=== PATIENT | male | born 1970 | race Caucasian/White ===

== ENCOUNTER 2017-08-19 14:35 | Inpatient (IN) | payer OTHER ==
--- NOTE | 2017-08-19 15:32 | EKG ---
Test Date: 2017-08-19 Test Time: 15:15:04 Rotor Coil Taper: ROSIE MEASUREMENT RESULTS: Intervals: Rate: 118 MO: 140 QRSD: 80 QT: 328 QTc: 459 [place]: P: 34 MO: 140 QRS: -4 T: 26 INTERPRETIVE STATEMENTS: Sinus tachycardia Otherwise normal ECG Compared to ECG 06/26/2016 01:06:11 Sinus rhythm no longer present Myocardial infarct finding no longer present Electronically Signed On 08-19-17 15:31:08 CDT by Sagar Amador
[2017-08-19 15:56] LABS: Absolute Lymphocytes (CBC) 0.8 K/uL (0.7-4.9); Absolute Neutrophil 12.1 K/uL (1.8-8.0); Basophils % 1.1 % (0-1.3); Eosinophils % 1.5 % (0-4.4); Hematocrit 19.8 % (39.6-49.0); Lymphocytes % 5.7 % (15.3-44.8); MCH 25.5 pg (27.0-35.0); MCV 82.8 fL (80-100); MPV 7.7 fL (7.6-11.3); Monocytes % 6.9 % (3.3-12.3)
[2017-08-19 16:00] LABS: Protime INR 1.28
[2017-08-19 16:09] LABS: Albumin 2.8 g/dL (3.4-5.0); Bilirubin Direct 1.5 mg/dL (0-0.2); Bilirubin Total 2.5 mg/dL (0.2-1.0); Potassium 3.7 mmol/L (3.5-5.1); Protein, Total 7.6 g/dL (6.4-8.2)
--- NOTE | 2017-08-19 16:13 | RAD REPORT ---
EXAM DESCRIPTION: RAD - Chest Single View - 08/19/2017 3:59 pm CLINICAL HISTORY: DYSPNEA Chest pain. COMPARISON: No comparisons FINDINGS: Portable technique limits examination quality. The lungs are grossly clear. The heart is normal in size. No displaced fractures. IMPRESSION: No acute intrathoracic process suspected.
--- NOTE | 2017-08-19 16:34 | RAD REPORT ---
EXAM DESCRIPTION: CT - Abdomen Pelvis Wo Contrast - 08/19/2017 4:23 pm CLINICAL HISTORY: Abdominal pain. Abdominal distention;Abd pain COMPARISON: Abdomen Pelvis Wo Contrast dated 06/25/2016Abdomen Pelvis Wo Contrast dated 06/25/2016 ; Abdomen Pelvis Wo Contrast dated 06/18/2016 TECHNIQUE: CT imaging of the abdomen and pelvis was performed without contrast. Solid organ, bowel a nd vascular assessment is limited due to lack of IV and oral contrast. All CT scans are performed using dose optimization technique as appropriate and may include automated exposure control or mA/KV adjustment according to patient size. FINDINGS: The lower lung steiner are clear. The liver parenchymal pattern is diffusely abnormal with a prominent heterogenous appearance.Full ass essment is inherently limited due to lack IV contrast material. The spleen is mildly enlarged in size . The pancreas, left adrenal gland and kidneys are within normal limits for a noncontrast study. 18 m m nonspecific right adrenal lesion is unchanged. Mild ascites is present. No bowel obstruction or free air seen. Scattered diverticulosis is present w ithout diverticulitis. Small fluid containing umbilical hernia. The appendix is normal. Moderate lumbosacral degenerative changes. IMPRESSION: Diffusely heterogenous appearance to the liver parenchyma is noted. Assessment is limite d by the lack of IV contrast material. Followup nonemergent MR liver imaging may be of value for furt her characterization. Mild ascites. A limited non-contrast examination was performed as detailed.
[2017-08-19] MEDS ORDERED: NA CHLORIDE 0.9% 1,000 ML ONE (17:18)
[2017-08-19] MEDS ORDERED: NA CHLORIDE 0.9% 500 ML ONE (17:18)
[2017-08-19 17:23] LABS: Urine Bacteria 20-50 /HPF (NONE SEEN); Urine RBC >50 /HPF (NONE SEEN)
[2017-08-19 17:24] LABS: Urine Culture Reflex Order REFLEXED; Urine Mucus 2+ /HPF (NONE SEEN)
[2017-08-19 17:38] LABS: Urine Blood 3+ (NEG); Urine Glucose NEGATIVE (NEG); Urine Protein 2+ (NEG); Urine pH 5.5 (5.0-7.0)
--- NOTE | 2017-08-19 17:45 | ER ---
Nurse's Notes [facility] Name: Landon Peguero Age: 47 yrs Sex: Male : 1970 Arrival Date: 08/19/2017 Time: 14:39 Bed 18 Private MD: None, None Diagnosis: Acute pancreatitis;Anemia, unspecified;Gastrointestinal hemorrhage, unspecified Presentation: 08/19 14:49 Presenting complaint: Patient states: last June i had a rupture spleen, for days iave hj been passing blood, fresh bright red blood with clots on my rectum, reports loss of appetite, reports nausea; denies fever and chills; reports bloated abd;. Transition of care: patient was not received from another setting of care. Onset of symptoms was August 19, 2017. Risk Assessment: Do you want to hurt yourself or someone else? Patient reports no desire to harm self or others. Initial Sepsis Screen: Does the patient meet any 2 criteria? No. Patient's initial sepsis screen is negative. Does the patient have a suspected source of infection? No. Patient's initial sepsis screen is negative. Care prior to arrival: None. 14:49 Method Of Arrival: Ambulatory 14:49 Acuity: SARAH 3 Triage Assessment: 14:53 General: Appears in no apparent distress. uncomfortable, Behavior is calm, cooperative, hj appropriate for age. Pain: Complains of pain in abdomen. GI: Reports bloody stool, nausea. Historical: - Allergies: 14:53 No Known Allergies; hj - Home Meds: 14:53 Ferrous Sulfate Oral [Active]; Spironolactone Oral [Active]; furosemide Oral [Active]; hj pantoprazole oral oral [Active]; - PMHx: 14:53 Esophageal tear; GERD; ruptured spleen; hj - PSHx: 14:53 Vasectomy; Esophagus repair; - Immunization history:: Adult Immunizations up to date. - Social history:: Smoking status: Patient/guardian denies using tobacco, Patient/guardian denies using alcohol. - Ebola Screening: : Patient negative for fever greater than or equal to 101.5 degrees Fahrenheit, and additional compatible Ebola Virus Disease symptoms Patient denies exposure to infectious person Patient denies travel to an Ebola-affected area in the 21 days before illness onset. Screenin:53 Abuse screen: Denies threats or abuse. Denies injuries from another. Nutritional hj screening: No deficits noted. Tuberculosis screening: No symptoms or risk factors identified. Fall Risk None identified. Assessment: 17:55 General: Appears in no apparent distress. comfortable, obese, Behavior is calm, mb3 cooperative, appropriate for age. Pain: Complains of pain in umbilical area. Neuro: No deficits noted. Cardiovascular: No deficits noted. Respiratory: No deficits noted. GI: No deficits noted. No signs and/or symptoms were reported involving the gastrointestinal system. GI: No signs and/or symptoms were reported involving the gastrointestinal system. Abdomen is round obese, Bowel sounds present X 4 quads. Abd is soft and non tender. : Urine is cloudy. EENT: No signs and/or symptoms were reported regarding the EENT system. 17:55 Derm: Rash noted that is red, on lateral aspect of right calf, right ankle, lateral mb3 aspect of right foot, medial aspect of right calf, medial aspect of right foot, right [place], anterior aspect of right ankle, dorsum of right foot, lateral aspect of left calf, left lateral ankle, lateral aspect of left foot, medial aspect of left calf, left medial ankle, medial aspect of left foot, left wal[place], anterior aspect of left ankle and dorsum of left foot petichia Reports bruising all over arms, hands and lower legs bilaterally. 19:00 Reassessment: Patient and/or family updated on plan of care and expected duration. Pain mb3 level reassessed. Patient is alert, oriented x 3, equal unlabored respirations, skin warm/dry/pink. Vital Signs: 14:55 BP 144 / 79; Pulse 123; Resp 18; Temp 98.6(O); Pulse Ox 100% on R/A; Weight 97.52 kg; hj Height 6 ft. 0 in. (182.88 cm); Pain 6/10; 16:00 BP 145 / 80; Pulse 108; Resp 18; Pulse Ox 100% on R/A; mb3 17:00 BP 148 / 81; Pulse 108; Resp 22; Pulse Ox 99% on R/A; mb3 18:00 BP 149 / 80; Pulse 105; Resp 20; Temp 99.2(TE); Pulse Ox 100% ; mb3 19:00 BP 133 / 77; Pulse 115; Resp 26; Temp 99.2; Pulse Ox 97% on R/A; mb3 20:00 BP 131 / 76; Pulse 105; Resp 17; Temp 99.2; Pulse Ox 96% on R/A; mb3 14:55 Body Mass Index 29.16 (97.52 kg, 182.88 cm) hj ED Course: 14:39 Patient arrived in ED. rg4 14:40 None, None is Private Physician. rg4 14:51 Triage completed. hj 14:53 Arm band placed on right wrist. hj 14:53 Patient has correct armband on for positive identification. Placed in gown. Bed in low hj position. Call light in reach. Side rails up X 1. 15:01 Juan Luis Kothari, RN is Primary Nurse. mb3 15:30 Inserted saline lock: 18 gauge in right antecubital area, using aseptic technique. mb3 Blood collected. 15:36 Juan Pablo Soler NP is PHCP. pm1 15:36 Shaun oHlliday MD is Attending Physician. pm1 15:50 EKG done, by technical marketing engineer. reviewed by Shaun Holliday MD. 3 15:55 X-ray completed. Portable x-ray completed in exam room. Patient tolerated procedure ml well. 15:56 Radiology exam delayed due to lab results not completed at this time. (BUN/Creatinine). sw 15:58 XRAY Chest (1 view) In Process Unspecified. EDMS 16:22 Abdomen In Process Unspecified. EDMS 16:53 Bb Add On Sent. mb3 17:43 Chica Butler MD is Hospitalizing Provider. pm1 21:11 No provider procedures requiring assistance completed. Patient admitted, IV remains in mb3 place. Administered Medications: 20:05 Not Given (will be administered upstairs): NS 0.9% 1000 ml IV at 100 ml/hr once mb3 20:05 Drug: ProTONIX 40 mg Route: IVP; Site: right antecubital; mb3 20:06 Follow up: Response: No adverse reaction mb3 20:05 Drug: Rocephin 1 grams Route: IV; Rate: calculated rate; Site: right antecubital; mb3 20:06 Follow up: Response: No adverse reaction; IV Status: Completed infusion; IV Intake: [id number] Intake: 20:06 IV: 30ml; Total: 30ml. mb3 Outcome: 17:44 Decision to Hospitalize by Provider. pm1 21:11 Admitted to Med/surg accompanied by nurse, accompanied by tech, family with patient, mb3 via stretcher, room 221, with chart, Report called to Pearl Shane RN 21:11 Condition: stable 21:11 Instructed on the need for admit. 21:17 Patient left the ED. mb3 Signatures: Dispatcher [employer] EDElaine Silver Shannon sw Joaquin, Henry RN RN Juan Pablo Soler NP VICE PRESIDENT INTEGRATED pm1 Radha Khan rg4 Juan Luis Kothari RN RN mb3 Tanisha Goodman sm3 Corrections: (The following items were deleted from the chart) 14:57 14:55 Pulse 123bpm; Resp 18bpm; Pulse Ox 100% RA; Temp 98.6F Oral; 97.52 kg; Height 6 hj ft. 0 in.; BMI: 29.1; Pain 6/10; hj 22:03 17:55 General: Appears in no apparent distress. comfortable, obese, Behavior is calm, mb3 cooperative, appropriate for age, mb3
--- NOTE | 2017-08-19 17:45 | EDPHYS ---
Physician Documentation [facility] Name: Landon Peguero Age: 47 yrs Sex: Male : 1970 Arrival Date: 08/19/2017 Time: 14:39 Bed 18 Private MD: None, None ED Physician Shaun Holliday HPI: 08/19 16:00 This 47 yrs old Male presents to ER via Ambulatory with complaints of Bloody pm1 Stools, Breathing Difficulty. 16:00 The patient presents to the emergency department with rectal bleeding, bright red blood pm1 with bowel movement, 3-4 times 2 days ago that has resolved. No dark stool. Onset: The symptoms/episode began/occurred 2 day(s) ago. Abdominal pain: Abdominal bloating and generalized "heaviness" with sitting up. Abdominal "heaviness" resolved with lying down. Associated signs and symptoms: Pertinent positives: Weakness and shortness of breath. Severity of symptoms: in the emergency department the symptoms are worse Pain is currently a 0 / 10. GI bleed about 1 year ago with spontaneous rupture of his spleen. The patient has not recently seen a physician, the patient's primary care provider is Dr. Davide Hooker at [facility]. Historical: - Allergies: 14:53 No Known Allergies; hj - Home Meds: 14:53 Ferrous Sulfate Oral [Active]; Spironolactone Oral [Active]; furosemide Oral [Active]; hj pantoprazole oral oral [Active]; - PMHx: 14:53 Esophageal tear; GERD; ruptured spleen; hj - PSHx: 14:53 Vasectomy; Esophagus repair; hj - Immunization history:: Adult Immunizations up to date. - Social history:: Smoking status: Patient/guardian denies using tobacco, Patient/guardian denies using alcohol. - Ebola Screening: : Patient negative for fever greater than or equal to 101.5 degrees Fahrenheit, and additional compatible Ebola Virus Disease symptoms Patient denies exposure to infectious person Patient denies travel to an Ebola-affected area in the 21 days before illness onset. ROS: 16:00 Constitutional: Negative for fever, chills, and weight loss, Eyes: Negative for injury, pm1 pain, redness, and discharge, ENT: Negative for injury, pain, and discharge, Neck: Negative for injury, pain, and swelling, Cardiovascular: Negative for chest pain, palpitations, and edema. 16:00 Back: Negative for injury and pain, : Negative for injury, bleeding, discharge, and swelling, MS/Extremity: Negative for injury and deformity, Skin: Negative for injury, rash, and discoloration. 16:00 Respiratory: Positive for shortness of breath, Negative for cough, sputum production, wheezing. 16:00 Abdomen/GI: Positive for abdominal pain, abdominal distension, rectal bleeding, Negative for nausea, vomiting, and diarrhea, hematemesis. 16:00 Neuro: Positive for weakness, Negative for dizziness, headache, numbness, tingling. Exam: 16:00 Constitutional: This is a well developed, well nourished patient who is awake, alert, pm1 and in no acute distress. Head/Face: Normocephalic, atraumatic. 16:00 ENT: Nares patent. No nasal discharge, no septal abnormalities noted. Tympanic membranes are normal and external auditory canals are clear. Oropharynx with no redness, swelling, or masses, exudates, or evidence of obstruction, uvula midline. Mucous membranes moist. Neck: Trachea midline, no thyromegaly or masses palpated, and no cervical lymphadenopathy. Supple, full range of motion without nuchal rigidity, or vertebral point tenderness. No Meningismus. Chest/axilla: Normal chest wall appearance and motion. Nontender with no deformity. No lesions are appreciated. Cardiovascular: Regular rate and rhythm with a normal S1 and S2. No gallops, murmurs, or rubs. Normal PMI, no JVD. No pulse deficits. Respiratory: Lungs have equal breath sounds bilaterally, clear to auscultation and percussion. No rales, rhonchi or wheezes noted. No increased work of breathing, no retractions or nasal flaring. Abdomen/GI: Soft, non-tender, with normal bowel sounds. No distension or tympany. No guarding or rebound. No evidence of tenderness throughout. Back: No spinal tenderness. No costovertebral tenderness. Full range of motion. 16:00 Eyes: Periorbital structures: appear normal, Pupils: no acute changes, Extraocular movements: intact throughout, Conjunctiva: pale, bilaterally. 16:00 Skin: Appearance: normal except for affected area, Color: pale. 16:00 Neuro: Orientation: is normal, Motor: is normal, Sensation: is normal, no obvious gross deficits. 16:30 Abdomen/GI: Rectal exam: rectal tone normal, Stool: guaiac positive, mucoid, pm1 hemorrhoid(s), external, with associated bleeding, with pain, without thrombosis, mass, is not appreciated. Vital Signs: 14:55 BP 144 / 79; Pulse 123; Resp 18; Temp 98.6(O); Pulse Ox 100% on R/A; Weight 97.52 kg; hj Height 6 ft. 0 in. (182.88 cm); Pain 6/10; 16:00 BP 145 / 80; Pulse 108; Resp 18; Pulse Ox 100% on R/A; mb3 17:00 BP 148 / 81; Pulse 108; Resp 22; Pulse Ox 99% on R/A; mb3 18:00 BP 149 / 80; Pulse 105; Resp 20; Temp 99.2(TE); Pulse Ox 100% ; mb3 19:00 BP 133 / 77; Pulse 115; Resp 26; Temp 99.2; Pulse Ox 97% on R/A; mb3 20:00 BP 131 / 76; Pulse 105; Resp 17; Temp 99.2; Pulse Ox 96% on R/A; mb3 14:55 Body Mass Index 29.16 (97.52 kg, 182.88 cm) hj MDM: 15:45 Patient medically screened. pm1 17:39 Data reviewed: vital signs. Data interpreted: Pulse oximetry: on room air is 99 %. pm1 Interpretation: normal. Counseling: I had a detailed discussion with the patient and/or guardian regarding: the historical points, exam findings, and any diagnostic results supporting the discharge/admit diagnosis, lab results, radiology results, the need for further work-up and treatment in the hospital. 17:39 Physician consultation: Chica Butler MD was called at 17:45, was contacted at 17:45, pm1 regarding admission, patient's condition. 19:54 ED course: Urine micro results reviewed. Will cover patient with abx in ER. pm1 08/19 15:29 Order name: Basic Metabolic Panel; Complete Time: 16:14 rn 08/19 15:29 Order name: CBC with Diff; Complete Time: 16:05 rn 08/19 15:29 Order name: Creatinine for Radiology; Complete Time: 16:14 rn 08/19 15:29 Order name: Hepatic Function; Complete Time: 16:14 08/19 15:29 Order name: Lipase; Complete Time: 16:14 08/19 15:29 Order name: Urine Microscopic Only; Complete Time: 19:51 08/19 15:29 Order name: PT-INR; Complete Time: 16:05 08/19 15:29 Order name: Ptt, Activated; Complete Time: 16:05 08/19 15:29 Order name: Type And Screen 08/19 15:29 Order name: Troponin (emerg Dept Use Only); Complete Time: 16:37 08/19 16:09 Order name: Bb Add On ag 08/19 16:38 Order name: Packed RBC Leukored -1 [facility] 08/19 17:09 Order name: Urine Dipstick--Ancillary (enter results); Complete Time: 19:51 ag 08/19 17:25 Order name: Urine Culture [facility] 08/19 15:29 Order name: IV Saline Lock; Complete Time: 15:55 08/19 15:29 Order name: EKG; Complete Time: 15:29 08/19 15:30 Order name: XRAY Chest (1 view); Complete Time: 16:14 08/19 16:15 Order name: Abdomen ; Complete Time: 16:37 [facility] 08/19 17:54 Order name: CONS Pharmacy Consult [facility] 08/19 17:54 Order name: CONS Physician Consult [facility] 08/19 17:54 Order name: Heart Healthy [facility] 08/19 17:54 Order name: NPO [facility] 08/19 17:54 Order name: Basic Metabolic Panel [facility] 08/19 17:54 Order name: Basic Metabolic Panel [facility] 08/19 17:54 Order name: CBC with Automated Diff [facility] 08/19 17:54 Order name: CBC with Automated Diff [facility] 08/19 15:29 Order name: Labs collected and sent; Complete Time: 15:55 08/19 15:29 Order name: Urine Dipstick-Ancillary (obtain specimen); Complete Time: 17:23 08/19 15:29 Order name: EKG - Nurse/Tech; Complete Time: 15:55 08/19 16:04 Order name: Transfuse; Complete Time: 17:25 pm1 Administered Medications: 20:05 Not Given (will be administered upstairs): NS 0.9% 1000 ml IV at 100 ml/hr once mb3 20:05 Drug: ProTONIX 40 mg Route: IVP; Site: right antecubital; mb3 20:06 Follow up: Response: No adverse reaction mb3 20:05 Drug: Rocephin 1 grams Route: IV; Rate: calculated rate; Site: right antecubital; mb3 20:06 Follow up: Response: No adverse reaction; IV Status: Completed infusion; IV Intake: [id number] Disposition: 08/19/17 17:44 Hospitalization ordered by Chica Butler for Inpatient Admission. Preliminary diagnosis are Anemia, unspecified, Acute pancreatitis, Gastrointestinal hemorrhage, unspecified. - Bed requested for Telemetry/MedSurg (Inpatient). - Status is Inpatient Admission. mb3 - Condition is Stable. - Problem is new. - Symptoms have improved. UTI on Admission? No Addendum: 08/21/2017 20:53 Co-signature as Attending Physician, Shaun Holliday MD. r n Signatures: Dispatcher [employer] EDOR Shaun Holliday MD MD rn Gallardo, Ana ag Joaquin, Henry, RN RN Juan Pablo Soler, BECKY MEDIA PRODUCER pm1 Juan Luis Kothari RN RN mb3 Corrections: (The following items were deleted from the chart) 08/19 16:15 15:51 Abdomen Pelvis W Con+CT.RAD.BRZ ordered. [facility] 19:04 17:44 Hospitalization Ordered by Chica Butler MD for Inpatient Admission. Preliminary ag diagnosis is Anemia, unspecifiedAcute pancreatitis; Gastrointestinal hemorrhage, unspecified. Bed requested for Telemetry/MedSurg (Inpatient). Status is Inpatient Admission. Condition is Stable. Problem is new. Symptoms have improved. UTI on Admission? No. pm1 21:17 19:04 08/19/2017 17:44 Hospitalization Ordered by Chica Butler MD for Inpatient mb3 Admission. Preliminary diagnosis is Anemia, unspecifiedAcute pancreatitis; Gastrointestinal hemorrhage, unspecified. Bed requested for Telemetry/MedSurg (Inpatient). Status is Inpatient Admission. Condition is Stable. Problem is new. Symptoms have improved. UTI on Admission? No. ag
[2017-08-19] MEDS ORDERED: ONDANSETRON 4 MG/2 ML VIAL IV PRN (17:50)
[2017-08-19] MEDS ORDERED: NA CHLORIDE 0.9% 250 ML IV SCH (18:00)
[2017-08-19] MEDS ORDERED: FUROSEMIDE 20 MG/ 2ML VIAL IV SCH (19:00)
[2017-08-19] MEDS ORDERED: CEFTRIAXONE/SWI 1gm 1 GM/10 ML SYR ONE (20:01)
[2017-08-19] MEDS ORDERED: PANTOPRAZOLE 40 MG INJ ONE (20:01)
[2017-08-19] MEDS ORDERED: METHYLPREDNISOLONE 125 MG INJ IV ONE (20:51)
[2017-08-19] MEDS ORDERED: DIPHENHYDRAMINE 25 MG TAB/CAP PO ONE (20:52)
[2017-08-19] MEDS: PANTOPRAZOLE 40 MG INJ IVP SCH (21:00)
[2017-08-19] MEDS: NA CHLORIDE 0.9% 1,000 ML IV SCH (21:21)
[2017-08-20] MEDS ORDERED: TRAZODONE 50 MG TABLET PO ONE (00:44)
[2017-08-20] MEDS: ACETAMINOPHEN 500 MG TAB PO PRN ×3 (01:05→21:37)
[2017-08-20] MEDS ORDERED: NA CHLORIDE 0.9% 250 ML ONE (03:07)
--- NOTE | 2017-08-20 03:55 | HP ---
Date of Admission: 08/19/2017 Blindstitch Machine Operator: Dr. Benites. Primary Care Physician: Dr. Davide Hooker. Chief Complaint: GI bleed. History Of Present Illness: The patient is a 47-year-old male with past medical history of chronic liver disease, unknown etiology, history of esophageal tear, ruptured spleen. The patient usually gets his treatment at [facility] and refused upper scope in March. The patient had some generalized weakness, shortness of breath, and some ascites and was having some GI bleeds through the rectum, which was bright red for the past couple of days. The patient's symptoms are constant, moderate, progressively worsening. The patient came in for further evaluation. His symptoms are constant, moderate, and progressively worsening. No alleviating or aggravating factors. Upon workup in the ER, his hemoglobin was 6.1, creatinine was 1.7, which is around his baseline. Lipase was elevated at 2140. CT scan of the abdomen and pelvis shows a diffusely heterogeneous appearance of the liver, mild ascites. The pancreas, left adrenal gland, and kidneys are within normal limits. The patient was transfused, was started on blood transfusion, 2 units insulin, 1 L normal saline bolus. The patient was then referred for admission. When seen in the ER, he was awake, alert, and oriented x3, in some mild distress. Past Medical History: Chronic liver disease, history of splenic rupture which was treated nonoperatively at [facility] and history of esophageal tear, gastroesophageal reflux disease. Past Surgical History: Vasectomy, esophageal repair. Allergies: NO KNOWN DRUG ALLERGIES. Medications: The patient takes iron, spironolactone, furosemide, pantoprazole. Family History: The patient denies any history of liver disease. Social History: The patient is and has not smoked since 2013. No active drinking since his 20s. No illicit drug use. Review of Systems: An 11-point system review is negative except as per HPI. Physical Examination: Vital Signs: Blood pressure 144/79, pulse 123, respirations 18, temperature 98.6, O2 100% on room air. General: Awake, alert, oriented x3, in some mild distress, ill-appearing male. HEENT: Normocephalic, atraumatic. PERRLA. EOMI. Dry mucous membranes. Oropharynx is clear. Poor dentition. Conjunctivae anicteric. Neck: Supple. No JVD. Trachea midline. CV: S1, S2. Sinus tachycardia. No murmurs. Peripheral pulses present. Respiratory: Moving air well bilaterally. No wheezing. No stridor. No use of accessory muscles. Gastrointestinal: Abdomen is soft, mildly distended, mild ascites. No tenderness. Bowel sounds are positive. Extremities: No clubbing or cyanosis. Trace edema. No calf tenderness. Neurologic: Cranial nerves 2 through 12 intact grossly. No focal neurological deficit. Speech is normal. Strength is symmetric bilateral upper and lower extremities. Sensation intact to light touch. Psych: Mood is okay. Affect is full. Insight and judgment are good. Laboratory Data: UA; 3+ blood, negative nitrite, trace leukocyte, greater than 50 rbc's, 5 to 10 wbc's, less than 5 squamous epithelial cells, 20 to 50 urine bacteria. Sodium 137, potassium 3.7, chloride 104, CO2 24, BUN 22, creatinine 1.7, glucose 102, calcium 8.1, total bilirubin 2.5, AST 139, ALT 64, alkaline phosphatase 231. Troponin less than 0.02. Albumin 2.8, lipase 2140. INR 1.28. WBC 14.3, H and H 6.1 and 19.8, platelets 121, neutrophils 84%. Chest x-ray shows no acute abnormalities. CT scan shows diffusely heterogeneous appearance of the liver parenchyma noted, mild ascites. Pancreas , left adrenal gland and kidneys are within normal limits. Spleen is mildly enlarged in size, 8 mm, nonspecific, right adrenal lesion is unchanged. Assessment: A 47-year-old male with; 1. Gastrointestinal bleed, likely lower source. Gastrointestinal will be consulted. The patient will be transfused 2 units of PRBCs. We will start on IV PPI. 2. Acute blood loss anemia secondary to above. We will transfuse 2 units PRBCs. Monitor H and H. Try IV Lasix after each unit, likely need scope. 3. Chronic liver disease, unclear etiology. The patient denies any history of hepatitis or alcohol. Usually sees a specialist at [facility]. 4. Elevated lipase level. CT does not show any pancreatitis. 5. Chronic kidney injury, stage 2. We will continue to monitor creatinine. 6. Urinary tract infection, acute cystitis with hematuria. We will start on some IV antibiotics. Follow up on urine culture. Gastrointestinal and deep venous thrombosis prophylaxes with PPI and SCDs. No chemical anticoagulation due to gastrointestinal bleed. Plan: Admit the patient to [facility]-Surg, place as inpatient. JULIEN Voice ID: [id number] MTDD
[2017-08-20] MEDS: NA CHLORIDE 0.9% 1,000 ML IV SCH ×3 (04:00→17:45)
[2017-08-20] MEDS: PANTOPRAZOLE 40 MG INJ IVP SCH ×2 (08:45→21:36)
[2017-08-20] MEDS: SODIUM CHLORIDE 0.9% 10ML INJ IV SCH (08:45)
[2017-08-20 10:05] LABS: Absolute Lymphocytes (CBC) 0.3 K/uL (0.7-4.9); Absolute Monocytes 0.2 K/uL (0.1-1.3); Absolute Neutrophil 13.1 K/uL (1.8-8.0); Basophils % 0.1 % (0-1.3); Hematocrit 24.7 % (39.6-49.0); Lymphocytes % 2.1 % (15.3-44.8); MCH 26.5 pg (27.0-35.0); MCV 83.2 fL (80-100); MPV 8.4 fL (7.6-11.3); Monocytes % 1.3 % (3.3-12.3); RBC Red Blood Cell Count 2.97 M/uL (4.33-5.43)
[2017-08-20 11:20] LABS: Anisocytosis 1+; Blood Morphology Comment NOTED (NOT SEEN); Hypochromasia 1+; Platelet Estimate DECR
--- NOTE | 2017-08-20 13:42 | RAD REPORT ---
EXAM DESCRIPTION: US - Abdomen Exam Complete - 08/20/2017 1:20 pm CLINICAL HISTORY: Abdominal pain. COMPARISON: ABDOMINAL EXAM COMPLETE dated 04/30/2013; Abdomen Pelvis Wo Contrast dated 08/19/2017 FINDINGS: Diffuse heterogenous appearance to the liver parenchyma is seen with fatty infiltration. N odular liver contour is present compatible with cirrhosis. No evidence of portal vein thrombosis. The gallbladder demonstrates no gallstones, pericholecystic fluid or gallbladder wall thickening. Co mmon bile duct is mildly prominent measuring 7 mm Both kidneys are normal in size, shape and echotexture. No hydronephrosis, focal lesion of concern or perinephric fluid. The spleen is prominent in size measuring 17 cm The pancreas and aorta are obscured by bowel gas. The visualized aspects of the IVC are grossly normal. Mild ascites. IMPRESSION: Hepatomegaly with diffuse fatty infiltration and nodular liver contour. No evidence of p ortal venous thrombosis. Splenomegaly.
--- NOTE | 2017-08-20 13:42 | RAD REPORT ---
EXAM DESCRIPTION: VAS - Extrem Venous W Compress Arsenio - 08/20/2017 1:20 pm CLINICAL HISTORY: rule out DVT, swelling Bilateral leg edema and swelling. COMPARISON: No comparisons TECHNIQUE: Real-time sonographic interrogation of the left and right lower extremity deep venous sys tems was performed. FINDINGS: Normal compressibility, flow augmentation, phasic flow and spontaneous flow is identified in both the left and right lower extremity deep venous systems. IMPRESSION: No sonographic evidence of left or right lower extremity deep venous thrombosis.
--- NOTE | 2017-08-20 14:52 | PN ---
Date of Progress Note: 08/20/2017 Subjective: The patient seen and examined, chart reviewed, and case discussed with RN. The patient states that he had another episode of bright red blood per rectum. No abdominal pain. No hematemesi s. No nausea or vomiting. Review of Systems: Negative except as above. Medications: Reviewed. Objective: Vital Signs: Temperature 97.8, heart rate 80, blood pressure 148/72, respirations 17, O2 100% on room air. T-max was 100.7. General: Awake, alert, oriented x3. Some mild distress. CV: S1, S2. No murmurs. Regular rate and rhythm. Peripheral pulses present. Respiratory: Clear to auscultation bilaterally. No wheezing. No stridor. Gastrointestinal: Abdomen is soft, nontender, nondistended. Positive bowel sounds. No guarding or rigidity. Mild ascites. Extremities: No clubbing, cyanosis. Pedal edema. Neurologic: nonfocal. Laboratory Data: WBC 13.6, H and H 7.9, 24.7, platelets 104, and neutrophils 96. Sodium 138, potass ium 4, chloride 105, CO2 24, BUN 27, creatinine 1.7, glucose 144, and calcium 8.1. Urine culture is pending. Assessment: A 47-year-old male with; 1.Gastrointestinal bleed. The patient was transfused 2 units PRBCs. We will continue IV PPI. GI h as been consulted. May need scope. 2.Acute blood loss anemia secondary to above, status post 2 units of PRBCs. Monitor H and H. Trans fuse as needed. 3.Chronic kidney disease. Unclear etiology, stable. 4.Elevated lipase levels. No pancreatitis on CT scan. No clinical signs or symptoms. 5.Chronic kidney injury, stage 2. Monitor creatinine. Avoid NSAIDs. 6.Urinary tract infection, acute cystitis with hematuria. Continue antibiotics. Follow up on urine culture. 7.Gastrointestinal and deep venous thrombosis prophylaxis with PPI and SCDs. No chemical anticoagul ation due to gastrointestinal bleed. Plan: Follow up with GI recommendations. The patient may need scope. /BASIL Voice ID: [id number] Report ID: [id number]
--- NOTE | 2017-08-20 15:07 | CON ---
Date of Consultation: 08/20/2017 A 47-year-old male, 221, Dr. Butler. Reason For Consultation: Progressive weakness, GI bleeding, anemia. History Of Present Illness: Mr. Peguero is a 47-year-old gentleman, who has a very interesting histor y. Apparently he suffered a spontaneous splenic rupture as well as esophageal rupture and had surger y. At that time, he was told that he has cirrhosis, however, he does not know why he has cirrhosis o f liver. The patient had some GI bleeding in the way of bright red blood. He minimizes of bleeding, states th at it is small in amount. He does not see any doctor regularly. Denies any weakness, dizziness. La b workup revealed that in addition to that, he is also anemic and liver imaging was also abnormal and other nonspecific abnormality noted on CT scan. At this time, the patient is feeling better. He wa nts to eat. Past Medical History: As elaborated above. Past Surgical History: Splenectomy and esophageal rupture repair. Family History: Denies any gastrointestinal malignancy in the family. Social History: Rare alcohol. Psychiatric History: None. Allergies: REVIEWED IN THE CHART. Medications: Reviewed in the chart. Review of Systems: General: No fever, chills. No weight loss, weight gain. GI: As elaborated above. Hepatologic: As elaborated above. Musculoskeletal: No arthralgia, myalgia. Neuropsychiatric: No asterixis. No insomnia. No mental c loudiness. Dermatologic: No pruritus, however, has extensive skin rash. Musculoskeletal: None. Genitourinary: none. Physical Examination: General: Young male, generalized ecchymosis and purpura are evident on his exposed skin. Hemodynami c and respiratory profile within normal range. HEENT: Atraumatic, normocephalic. Slight icterus and pallor. Oropharynx is clear. Neck: Supple. No lymphadenopathy. Trachea central in position. Chest: Clear to auscultation and percussion. Cardiovascular: Normal S1, S2. No S3, no S4. Abdomen: somewhat prominent. Soft, nontender, nondistended. Excellent bowel sounds present. Scars are well healed. Neurologic: Alert, oriented x3. Intact memory, mentation, and judgment. No asterixis. No flapping tremor. Extremities: Upper and lower extremities normal and symmetrical. Dermatologic: Positive spider angiomata, which is very extensive all over as well as multiple purpur a and bruises in the upper and lower extremity as well as in the torso. Diagnostic Data: Reviewed and analyzed. CT scan, as elaborated above. Lipase is 2148. Impression, Plan, Recommendation: Mr. Peguero is a 47-year-old gentleman with pancreatitis. However, he has multiple medical problems and most likely cirrhosis. Variceal bleeding cannot be ruled out, although he is not having any acute gastrointestinal bleeding. Also bleeding from portal hypertensiv e gastropathy is a concern. His treatment option will be immediate treatment for his pancreatitis. However he is very hungry, wants to eat, therefore I will start his diet. Serial hemoglobin, hematoc rit monitoring. He will need further workup including EGD, colonoscopy, also variceal screening will be very important in this case and put him on prophylactic treatment for secondary variceal bleeding . I have had a long discussion with the patient. I have also encouraged him to follow up with liver tr ansplant center. Discussion of upper and lower GI endoscopy and possible risks and anesthesia related problems were di scussed with the patient. He has good understanding. He is agreeable. ROMERO/BASIL Voice ID: [id number] Report ID: [id number]
[2017-08-21 05:06] LABS: Absolute Lymphocytes (CBC) 0.7 K/uL (0.7-4.9); Absolute Monocytes 0.9 K/uL (0.1-1.3); Absolute Neutrophil 13.7 K/uL (1.8-8.0); Eosinophils % 0.2 % (0-4.4); Hematocrit 21.1 % (39.6-49.0); Lymphocytes % 4.6 % (15.3-44.8); MCH 27.2 pg (27.0-35.0); MCV 83.2 fL (80-100); MPV 8.5 fL (7.6-11.3); Monocytes % 5.8 % (3.3-12.3); RBC Red Blood Cell Count 2.54 M/uL (4.33-5.43)
[2017-08-21 05:25] LABS: Albumin 2.4 g/dL (3.4-5.0); Bilirubin Total 1.6 mg/dL (0.2-1.0); Potassium 3.9 mmol/L (3.5-5.1); Protein, Total 6.5 g/dL (6.4-8.2)
[2017-08-21] MEDS: NA CHLORIDE 0.9% 1,000 ML IV SCH ×3 (05:31→08:55)
[2017-08-21] MEDS: ACETAMINOPHEN 500 MG TAB PO PRN ×2 (08:53→12:45)
[2017-08-21] MEDS: FUROSEMIDE 40 MG TABLET PO SCH (08:53)
[2017-08-21] MEDS: PANTOPRAZOLE 40 MG INJ IVP SCH ×2 (08:53→20:09)
[2017-08-21] MEDS: SPIRONOLACTONE 100 MG TAB PO SCH (08:54)
[2017-08-21] MEDS: FERROUS SULFATE 325 MG TAB PO SCH (08:54)
[2017-08-21] MEDS: SODIUM CHLORIDE 0.9% 10ML INJ IV SCH (08:55)
[2017-08-21] MEDS ORDERED: DIPHENHYDRAMINE 25 MG TAB/CAP PO PRN (09:23)
[2017-08-21] MEDS ORDERED: ZOLPIDEM TARTRATE 5 MG TABLET PO PRN (09:24)
[2017-08-21] MEDS ORDERED: FUROSEMIDE 20 MG/ 2ML VIAL IV SCH (10:00)
--- NOTE | 2017-08-21 11:55 | PN ---
Date of Progress Note: 08/21/2017 Subjective: The patient seen and examined, chart reviewed, and case discussed with RN and Dr. Delmis PHELAN. The patient had a drop in his hemoglobin again today. States he has had 3 episodes of blood y bowel movements with bright red blood per rectum. No significant abdominal pain, but does report a scites. Review of Systems: Negative except as above. Medications: List reviewed. Objective: Vital Signs: Temperature 98.7, heart rate 90, blood pressure 132/63, respirations 18, an d O2 98% on room air. General: awake, alert, oriented, in some mild distress ill-appearing male. CV: S1, S2. No murmurs. Regular rate and rhythm. Peripheral pulses present. Respiratory: Diminished breath sounds at the bases, otherwise moving air well on the apices. No whe ezing. Gastrointestinal: Abdomen is distended. Moderate ascites. Bowel sounds are positive. Extremities: No clubbing, cyanosis, pedal edema. Neurologic: Nonfocal. Skin: The patient has changes consistent with liver cirrhosis including spider angiomata. Laboratory Data: Sodium 139, potassium 3.9, chloride 106, CO2 22, BUN 34, creatinine 1.6, glucose 99 , calcium 7.5, AST 69, ALT 42, total bilirubin 1.6, albumin 2.4, and lipase 1397. WBC 15.3, H and H 6.9, 21.1, platelets 100, and neutrophils 89%. Urine culture pending. C diff pending. Abdominal ul trasound shows liver cirrhosis, hepatomegaly, nodular liver contour. No evidence of portal venous th rombosis, splenomegaly. Venous Doppler ultrasound shows no DVT in either lower extremity. Assessment: A 47-year-old male with; 1.Acute gastrointestinal bleed. The patient has already been transfused 2 units. Will be transfuse d another unit this morning. GI on the case. May need scope. We will continue IV PPI. 2.Acute blood loss anemia secondary to above, status post 2 units PRBCs. Now receiving third unit. Monitor H and H and transfuse. 3.Chronic kidney disease. Creatinine improved. We will avoid NSAIDs. 4.Elevated lipase levels, resolving, doubt pancreatitis. Thee are no clinical signs or symptoms. 5.Ascites secondary to chronic liver disease. The patient may need a paracentesis. We will stop IV fluids. The patient is no longer dehydrated. We will continue with spironolactone and Lasix. Flui d restriction, 2 g sodium diet. 6.Urinary tract infection. Acute cystitis with hematuria. Continue antibiotics. Follow up on urin e culture, pending at this time. 7.Gastrointestinal and deep venous thrombosis prophylaxis with PPI and SCDs. No chemical anticoagul ation due to gastrointestinal bleed. Plan: Anticipate scope, monitor I's and O's strictly, daily weights, 2 g sodium restriction, 1500 mL fluid restriction. /MODL Voice ID: [id number] Report ID: [id number]
[2017-08-21] MEDS ORDERED: PROPOFOL 200 MG/20 ML VIAL IV ONE ×2 (15:38→16:15)
[2017-08-21] MEDS ORDERED: LIDOCAINE 1% MPF 5 ML VIAL ONE (15:38)
--- NOTE | 2017-08-21 18:26 | OP ---
Date of Procedure: 08/21/2017 Surgeon: Jeannie Benites MD Procedure: Esophagogastroduodenoscopy. Indication: Hematochezia/melena, history of cirrhosis with portal hypertension, post splenectomy. Premedication: Per Anesthesia. Complexity: Moderate. Tolerance Of Sedation: Excellent. Procedure In Detail: Procedure, possible complications, alternatives including, but not limited to t he possibility of bleeding, perforation, tear, infection, sepsis, need for surgery, need for blood tr ansfusion, anesthesia related problem are explained to the patient. Informed consent obtained. The patient was placed in left lateral position. After appropriate level of anesthesia, scope was passed . In the esophageal area from proximal to distal area, grade 4 varices noted; however, no stigmata o f acute or recurrent bleeding was noted. Distal part of the esophagus had retained food material in addition to stomach. A large gastric bezoar noted that limited the visualization severely. Probable esophageal food debris is part of this extension. Duodenal bulb, duodenal angle had portal hyperten sive enteropathy. No active or passive bleeding noted. Given the large gastric bezoar and retained esophageal debris, visualization was really poor. Theref ore, at this time due to lack of any acute or recurrent stigmata of bleeding, variceal banding was no t deemed to be appropriate and safe. Having done the above procedure in a safe, diligent, and satisfactory manner, endoscope and rest of t he endoscopic accessories were removed. The patient's oropharyngeal area cleaned out in a respectful manner. The patient has been sent in excellent condition to postop recovery, from there to the [facility]. Impression: Grade 4 varices, retained food material, severe gastric bezoar, poor visualization, port al hypertensive enteropathy. Plan: Treatment, medications, follow hemoglobin and hematocrit, transfuse if needed. If recurrent G I bleeding, lower GI endoscopy might be needed. However, his clinical course will dictate the situat ion. Complications: None. The patient tolerated the procedure well. Disposition: As above. ROMERO/BASIL Voice ID: [id number] Report ID: [id number]
[2017-08-21] MEDS: VANCOMYCIN ORAL SOLN 250 MG/5 ML OSYR PO SCH ×2 (20:09→23:15)
[2017-08-21 20:22] LABS: Hematocrit 23.5 % (39.6-49.0)
[2017-08-22 04:31] LABS: Absolute Lymphocytes (CBC) 0.9 K/uL (0.7-4.9); Absolute Monocytes 0.7 K/uL (0.1-1.3); Absolute Neutrophil 8.7 K/uL (1.8-8.0); Basophils % 0.3 % (0-1.3); Eosinophils % 2.5 % (0-4.4); Hematocrit 24.2 % (39.6-49.0); Lymphocytes % 8.5 % (15.3-44.8); MCH 27.5 pg (27.0-35.0); MCV 84.6 fL (80-100); MPV 8.6 fL (7.6-11.3); Monocytes % 6.9 % (3.3-12.3); RBC Red Blood Cell Count 2.86 M/uL (4.33-5.43)
[2017-08-22 04:48] LABS: Albumin 2.5 g/dL (3.4-5.0); Bilirubin Total 2.1 mg/dL (0.2-1.0); Protein, Total 6.7 g/dL (6.4-8.2)
[2017-08-22] MEDS: VANCOMYCIN ORAL SOLN 250 MG/5 ML OSYR PO SCH ×3 (06:00→17:02)
[2017-08-22 06:18] VITALS: BMI 28.5
[2017-08-22] MEDS ORDERED: OCTREOTIDE ACETATE 100 MCG/ML IV ONE (07:26)
[2017-08-22] MEDS: OCTREOTIDE 500 MCG in NA CHLORIDE 0.9% 500 ML IV SCH ×2 (08:09→17:02)
[2017-08-22] MEDS: FERROUS SULFATE 325 MG TAB PO SCH (08:09)
[2017-08-22] MEDS: FUROSEMIDE 40 MG TABLET PO SCH (08:09)
[2017-08-22] MEDS: PANTOPRAZOLE 40 MG INJ IVP SCH (08:10)
[2017-08-22] MEDS: SODIUM CHLORIDE 0.9% 10ML INJ IV SCH (08:10)
[2017-08-22 08:26] VITALS: O2SAT 98
[2017-08-22 10:26] LABS: Hematocrit 24.8 % (39.6-49.0)
[2017-08-22] MEDS: SPIRONOLACTONE 100 MG TAB PO SCH (11:35)
--- NOTE | 2017-08-22 16:36 | PN ---
Subjective: Currently patient lying in bed. He looks comfortable. He has no chest pain. No abdomi nal pain. No fever or chills. He had no bowel movement since 6 a.m. He is frustrated as the colonos copy is not able to be done at our facility, and [facility] will not accept the patient for transfer until they verify his insurance. Objective: Vital Signs: Blood pressure is 134/77, respiratory rate 16, pulse 103, temperature 98.3. General: The patient is alert. Does not appear in distress. HEENT: Atraumatic, normocephalic. PERRLA. Oral mucosa is moist. Neck: Supple. No JVP. No bruits. Chest: Clear to auscultation. Good air entry. Heart: Irregular rhythm. S1, S2 normal. No gallop or murmur. Abdomen: Soft, minimally tender. Moderate ascites, distended. Positive bowel sounds. Extremities: No clubbing, no cyanosis. Trace edema. There is a petechial rash. Skin: With spider angiomata. Laboratory Data: Today, showed CBC with hemoglobin at 8, hematocrit 24, white blood cells 10.6, plat elet at 92. PT/INR within normal. Chemistry within normal except for BUN of 33, creatinine 1.5, glu cose 85, total bilirubin 2.1. Total cholesterol 178, lipase 3871. EGD done yesterday by Dr. Benites showed grade 4 versus retained food material severe gastric bezoar, po rtal hypertensive enteropathy. Assessment And Plan: 1.Acute gastrointestinal bleed. Status post transfusion H and H relatively stable. Continue patien t on IV PPI. EGD showed grade 4 varices. No active bleeding. The patient needs colonoscopy which Kristal Benites does not comfortable proceeding with, and the patient need to be transferred to [facility], transfer to [facility] ordered, but still pending approval. 2.Acute blood loss anemia, status post 3 unit of transfusion. We will watch H and H and transfuse i f hemoglobin drops below 7. 3.Chronic renal insufficiency. Creatinine of 1.5 down from 1.7. We will observe for now. Keep wel l hydrated. 4.Ascites secondary to liver cirrhosis. The patient on Aldactone, Lasix. Continue that, 2 g sodium diet. He may eventually need paracentesis. 5.Urinary tract infection with acute cystitis and hematuria. Continue IV antibiotic culture showed m ore contamination than infection. 6.Clostridium difficile colitis, positive. The patient on oral vancomycin every 6 hours. 7.Iron deficiency anemia secondary to gastrointestinal bleed. Continue on iron replacement. 8.Treat insomnia with Ambien. 9.No deep vein thrombosis prophylaxis, as the patient is bleeding. 10.We will continue on PPI drip until transfer to [facility]. 11.The patient thinking about leaving AMA and going by himself to the emergency room at [facility], but nash ve not made up his mind yet. EUGENE/BASIL Voice ID: [id number] Report ID: [id number]
[2017-08-22 19:26] VITALS: BP 127/72; TEMP 98.7
--- NOTE | 2017-08-24 06:49 | DS ---
Date of Discharge: 08/22/2017 Discharge Diagnoses: 1.Clostridium difficile colitis. 2.Gastrointestinal bleed. 3.Chronic renal insufficiency. 4.Elevated lipase. 5.Ascites. 6.Urinary tract infection. Consultation: Gastroenterology. Procedures: 1.Esophagogastroduodenoscopy. 2.Blood transfusion. 3.CAT scan of the abdomen and pelvis. History Of Present Illness: Please refer to our H and P that was done by Dr. Butler on August 19. Hospital Course: Initially, the patient presented with general fatigue, weakness, shortness of breat h, and bright red blood per rectum. The patient's hemoglobin was very low at 6.1 in the ER. He was transfused with 3 units of blood. Admitted to the floor. Two C difficile studies were positive. He was placed on oral vancomycin. GI consult was requested. EGD done showed grade 4 varices but the p atient continued to bleed. Dr. Benites was not comfortable doing colonoscopy, worried about further ble eding with the patient's severe cirrhosis and he requested the patient transfer to , [facility], so we transferred him to [facility] in [place] and he left yesterday after hours. Discharge Medication: Via [facility]. Discharge Activity: Via [facility]. Discharge Diet: Via [facility]. There was no instruction about transfer. Please see my progress note for the day for the physical ex am details and vital signs. EUGENE/BASIL Voice ID: [id number] Report ID: [id number]
== END 2017-08-22 19:29 | disposition short-term general hospital (02) | DRG 378 ==
LOC: ER 14:35 → ERHOLD 17:58 → 2ND 20:05 → 3RD-ICU 08-21 20:30
PROVIDERS: ADMIT Family Medicine; ATTEND Internal Medicine
PROC: 30233N1 Transfusion of Nonautologous Red Blood Cells into Peripheral Vein, Percutaneous Approach (ICD-10-PCS; 2017-08-19)
PROC: 0DJ08ZZ Inspection of Upper Intestinal Tract, Via Natural or Artificial Opening Endoscopic (ICD-10-PCS; principal; 2017-08-21 15:45)
DX: K92.1 Melena (principal); A04.72 Enterocolitis due to Clostridium difficile, not specified as recurrent; R18.8 Other ascites; D62 Acute posthemorrhagic anemia; K76.6 Portal hypertension; N30.01 Acute cystitis with hematuria; I85.10 Secondary esophageal varices without bleeding; N18.9 Chronic kidney disease, unspecified; K74.60 Unspecified cirrhosis of liver; K63.89 Other specified diseases of intestine; G47.00 Insomnia, unspecified; Z90.81 Acquired absence of spleen; T18.2XXA Foreign body in stomach, initial encounter; Z87.891 Personal history of nicotine dependence
CPT/HCPCS: 36415; 71045; 74176; 76700; 80048; 80053; 80076; 81003; 81015; 83690; 84484; 85014; 85018; 85025; 85610; 85730; 86850; 86900; 86901; 87086; 87088; 87493; 93005; 93970; 94760; 96374; 96375; 99285; C9113; J0696; J1940; J2354; J2930; J7030; P9016

== ENCOUNTER 2019-01-16 09:15 | Emergency (ER) | payer OTHER ==
--- OUTSIDE RECORDS SUMMARY | 2019-01-16 09:19 | XMS REPORT | Summary of Care ---
:1970 Author Organization [facility] - Health Address [address] [place] [address] Care Team Providers Name Role Phone Raj Jerez MD Primary Care Provider Encounter Details Date Type Department Care Team Description 09/17/2018 Orders Only [facility] Doctor Unassigned, No [address] [facility] [place] [address] [address] [place] [address] Allergies No Known Allergiesdocumented as of this encounter (statuses as of 09/17/2018) Medications Medication Sig Dispensed Refills Start Date End Date Status cholecalciferol, vitamin Take 2 tablets 60 tablet 0 07/23/2016 Active D3, 1,000 unit tablet by mouth daily. ferrous sulfate (IRON, Take 1 tablet by 60 tablet 5 03/20/2017 Active FERROUS SULFATE,) 325 mg mouth 2 (two) (65 mg iron) tablet times daily with meals. spironolactone 100 mg Take 1.5 tablets 90 tablet 3 12/11/2017 Active tablet by mouth 2 (two) times daily. propranolol 10 mg tablet Take 1 tablet by 90 tablet 3 12/25/2017 Active mouth 2 (two) times daily. pantoprazole 40 mg EC Take 1 tablet by 90 tablet 3 04/23/2018 Active tablet mouth 2 (two) times daily. sildenafil 20 mg Take 1 tablet by 20 tablet 0 04/23/2018 Active tabletIndications: mouth every 24 Erectile dysfunction, (twenty-four) unspecified erectile hours as needed dysfunction type (erectile dysfunction). furosemide (LASIX) 40 mg Take 1.5 tablets 90 tablet 3 05/18/2018 Active tabletIndications: by mouth every Hepatic cirrhosis, morning and unspecified hepatic evening. 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/20/2017 Obesity (BMI 30-39.9) 08/04/2016 CKD (chronic kidney disease) 08/04/2016 Ascites 07/10/2016 Acute pancreatitis 06/26/2016 Nontraumatic splenic rupture 06/19/2016 documented as of this encounter (statuses as of 09/17/2018) Resolved Problems Problem Noted Date Resolved Date Elevated lipase 08/04/2016 02/20/2017 Abdominal compartment syndrome 06/26/2016 08/06/2016 ERIC (acute kidney injury) 06/19/2016 02/20/2017 Anemia 06/19/2016 02/20/2017 documented as of this encounter (statuses as of 09/17/2018) Immunizations Name Administration Dates Next Due Heamophilus Influenza B 07/15/2016 Influenza Virus Vaccine 02/20/2017 Influenza Virus Vaccine Quad .5 mL IM 6+ MO 12/25/2017 Influenza Virus Vaccine Quad IM 3+ YRS 02/20/2017 Pneumococcal 13 Conjugate, PCV13 (Prevnar 13) 07/15/2016 Tdap 12/25/2017 documented as of this encounter Social History Tobacco Use Types Packs/Day Years Used Date Former Smoker 1 8 Smokeless Tobacco: Former User Alcohol Use Drinks/Week oz/Week Comments Yes occassional Sex Assigned at Date Recorded Not on file Job Start Date Occupation Industry Not on file Not on file Not on file Travel History Travel Start Travel End No recent travel history available. documented as of this encounter Last Filed Vital Signs Not on filedocumented in this encounter Plan of Treatment Date Type Specialty Care Team Description 09/17/2018 Office Visit Internal Medicine Raj Jerez MD [address] [place] [address]. [place] [phone] 11/18/2018 Office Visit Nephrology Santy Hyman [address] [place] [address] [phone] Health Maintenance Due Date Last Done Comments COLONOSCOPY 01/03/2018 Zoster Recombinant Vaccine 01/03/2018 (SHINGRIX) (1 of 2) INFLUENZA VACCINE 10/10/2018 12/25/2017, 02/20/2017, 02/20/2017 DTaP,Tdap,and Td Vaccines (2 12/26/2027 12/25/2017 - Td) PNEUMOCOCCAL 0-64 YEARS Aged Out 07/15/2016 No longer eligible based COMBINED SERIES on patient's age to complete this topic documented as of this encounter Procedures Procedure Name Priority Date/Time Associated Diagnosis Comments NO SHOW OR MISSED Routine 09/17/2018 1:58 PM APPOINTMENT POLICY CDT ACKNOWLEDGEMENT documented in this encounter Results Not on filedocumented in this encounter Insurance Payer Benefit Plan / Group Subscriber ID Effective Dates Phone Address Type [employer]ETNA AETNA HMO [id number] 2017-Present HMO documented as of this encounter
--- OUTSIDE RECORDS SUMMARY | 2019-01-16 09:19 | XMS REPORT | Summary of Care ---
:[address] [facility] - [facility] Address [address] [place] [id number] Care Team Providers Name Role Phone Raj Jerez MD Primary Care Provider Reason for Visit Reason Comments Refill Request Encounter Details Date Type Department Care Team Description 09/14/2018 Refill [facility] Internal Raj Jerez, Refill Request Medicine - [facility] [address] [place] [address]. [address] , [place] [address] [address] [place] [phone] Allergies No Known Allergiesdocumented as of this encounter (statuses as of 09/20/2018) Medications Medication Sig Dispensed Refills Start Date End Date Status cholecalciferol, Take 2 60 tablet 0 07/23/2016 Active vitamin D3, 1,000 tablets by unit tablet mouth daily. ferrous sulfate Take 1 tablet 60 tablet 5 03/20/2017 Active (IRON, FERROUS by mouth 2 SULFATE,) 325 mg (65 (two) times mg iron) tablet daily with meals. propranolol 10 mg Take 1 tablet 90 tablet 3 12/25/2017 Active tablet by mouth 2 (two) times daily. sildenafil 20 mg Take 1 tablet 20 tablet 0 04/23/2018 Active tabletIndications: by mouth Erectile every 24 dysfunction, (twenty-four) unspecified erectile hours as dysfunction type needed (erectile dysfunction). spironolactone 100 Take 1.5 90 tablet 3 09/20/2018 Active mg tablets by tabletIndications: mouth 2 (two) Hepatic cirrhosis, times daily. unspecified hepatic cirrhosis type, unspecified whether ascites present pantoprazole 40 mg Take 1 tablet 90 tablet 3 09/20/2018 Active EC by mouth 2 tabletIndications: (two) times Hepatic cirrhosis, daily. unspecified hepatic cirrhosis type, unspecified whether ascites present furosemide (LASIX) Take 1.5 90 tablet 3 09/20/2018 Active 40 mg tablets by tabletIndications: mouth every Hepatic cirrhosis, morning and unspecified hepatic evening. cirrhosis type, unspecified whether ascites present spironolactone 100 Take 1.5 90 tablet 3 12/11/2017 09/14/2018 Discontinued mg tablet tablets by mouth 2 (two) times daily. pantoprazole 40 mg Take 1 tablet 90 tablet 3 04/23/2018 09/14/2018 Discontinued EC tablet by mouth 2 (two) times daily. furosemide (LASIX) Take 1.5 90 tablet 3 05/18/2018 09/14/2018 Discontinued 40 mg tablets by tabletIndications: mouth every Hepatic cirrhosis, morning and unspecified hepatic evening. cirrhosis type, unspecified whether ascites present documented as of this encounter (statuses as of 09/20/2018) Active Problems Problem Noted Date Fatigue 03/20/2017 Melena 03/20/2017 Iron deficiency anemia, unspecified iron deficiency anemia type 02/24/2017 Overview: Added automatically from request for surgery [id number] Symptomatic anemia 02/21/2017 Cryptogenic cirrhosis of liver 02/20/2017 IgA nephropathy associated with liver disease 02/20/2017 Obesity (BMI 30-39.9) 08/04/2016 CKD (chronic kidney disease) 08/04/2016 Ascites 07/10/2016 Acute pancreatitis 06/26/2016 Nontraumatic splenic rupture 06/19/2016 documented as of this encounter (statuses as of 09/20/2018) Resolved Problems Problem Noted Date Resolved Date Elevated lipase 08/04/2016 02/20/2017 Abdominal compartment syndrome 06/26/2016 08/06/2016 ERIC (acute kidney injury) 06/19/2016 02/20/2017 Anemia 06/19/2016 02/20/2017 documented as of this encounter (statuses as of 09/20/2018) Immunizations Name Administration Dates Next Due Heamophilus [...] Treatment Date Type Specialty Care Team Description 11/18/2018 Office Visit Nephrology Santy Hyman [place], [place] [id number] Health Maintenance Due Date Last Done Comments COLONOSCOPY 01/03/2018 Zoster Recombinant Vaccine 01/03/2018 (SHINGRIX) (1 of 2) INFLUENZA VACCINE 10/10/2018 12/25/2017, 02/20/2017, 02/20/2017 DTaP,Tdap,and Td Vaccines (2 12/26/2027 12/25/2017 - Td) PNEUMOCOCCAL 0-64 YEARS Aged Out 07/15/2016 No longer eligible based COMBINED SERIES on patient's age to complete this topic documented as of this encounter Results Not on filedocumented in this encounter Visit Diagnoses Diagnosis Hepatic cirrhosis, unspecified hepatic cirrhosis type, unspecified whether ascites present documented in this encounter Insurance Payer Benefit Plan / Group Subscriber ID Effective Dates Phone Address Type [employer]ETNA AETNA HMO [id number] 2017-Present HMO documented as of this encounter
--- OUTSIDE RECORDS SUMMARY | 2019-01-16 09:19 | XMS REPORT | Summary of Care ---
:1970 Author Organization [facility] - [facility] Address [address] [place] [address] Care Team Providers Name Role Phone Raj Jerez MD Primary Care Provider Reason for Referral (Routine) Status Reason Specialty Diagnoses / Procedures Referred By Referred To Contact Contact New Request Gastroenterology Diagnoses Hepatic cirrhosis, unspecified hepatic cirrhosis type, unspecified whether ascites present Vivek Lopez Procedures CONSULT/REFERRAL GASTROENTEROLOGY MD Vamshi [address] [place] [phone] Reason for Visit Reason Comments HEALTH MAINTENANCE Refill Request Encounter Details Date Type Department Care Team Description 09/17/2018 Office Visit [facility] Internal Vivek Lopez MD [address] [place] [address] Hepatic cirrhosis, Medicine - [place] Raj Jerez MD [address] [place] [address]. [place] [address] unspecified hepatic Primary Care cirrhosis type, [facility] unspecified whether [address], ascites present [address] (Primary Dx) [place] [address] Allergies No Known Allergiesdocumented as of this [...] Overview: Added automatically from request for surgery [id number] Symptomatic anemia 02/21/2017 Cryptogenic cirrhosis of liver [...] of this encounter Last Filed Vital Signs Vital Sign Reading Time Taken Comments Blood Pressure 119/64 09/17/2018 2:06 PM CDT Pulse 84 09/17/2018 2:06 PM CDT Temperature 37.2 C (98.9 F) 09/17/2018 2:06 PM CDT Respiratory Rate 17 09/17/2018 2:06 PM CDT Oxygen Saturation 99% 09/17/2018 2:06 PM CDT Inhaled Oxygen Concentration - - Weight 95.7 kg (211 lb) 09/17/2018 2:06 PM CDT Height 182.9 cm (6') 09/17/2018 2:06 PM CDT Body Mass Index 28.62 09/17/2018 2:06 PM CDT documented in this encounter Progress Notes Raj Jerez MD - 09/17/2018 4:20 PM CDT Internal Medicine Clinic Note CC: follow up on anemia and cryptogenic cirrhosis HPI: Landon Peguero is a 48 year old male with PMH Of HTN, cryptogenic cirrhosis , IgA dominant glomerulonephritis, and CKD stage 3 presenting for f/u on anemia and cirrhosis. He does have any acute issues today. He only has minor difficulty staying hydrated while on the diuretics. He tried starting to work out again and was sore afterwards but now recovered. Today, he also reports no fatigue. He denies any fever, chills, n/v, dark stools , blood in stools, dizziness, YANCEY, SOB, chest pain, or other symptoms at this time. He states he has been taking all his medication and watching his fluid and salt intake. He also started taking a iron supplement a few weeks ago. Medications: Current Outpatient Medications Medication Sig furosemide (LASIX) 40 mg tablet Take 1.5 tablets by mouth every morning and evening. pantoprazole 40 mg EC tablet Take 1 tablet by mouth 2 (two) times daily. sildenafil 20 mg tablet Take 1 tablet by mouth every 24 (twenty-four) hours as needed (erectile dysfunction). propranolol 10 mg tablet Take 1 tablet by mouth 2 (two) times daily. spironolactone 100 mg tablet Take 1.5 tablets by mouth 2 (two) times daily. ferrous sulfate (IRON, FERROUS SULFATE,) 325 mg (65 mg iron) tablet Take 1 tablet by mouth 2 (two) times daily with meals. (Patient taking differently: Take 325 mg by mouth every Thursday, Thursday and Thursday.) cholecalciferol, vitamin D3, 1,000 unit tablet Take 2 tablets by mouth daily. PMHx: Past Medical History: Diagnosis Date Anemia Cirrhosis GERD with esophagitis Glomerulonephritis HTN (hypertension) PSurgical Hx: Past Surgical History: Procedure Laterality Date LIVER BIOPSY OTHER EGD with MW repair in 2013 at [facility] Family Hx: Family History Problem Relation Age of Onset Alcohol abuse Father Social Hx: Social History Tobacco Use Smoking status: Former Smoker Packs/day: 1.00 Years: 8.00 Pack years: 8.00 Smokeless tobacco: Former User Substance Use Topics Alcohol use: Yes Comment: occassional Drug use: No Allergies: No Known Allergies ROS: General: negative Eye: negative ENT: negative CV: negative Respiratory: negative GI: negative : negative Musculoskeletal: negative Skin: negative Neuro: negative Psych: negative Endocrine: negative Hematic/lymphatic: negative Exam: Vitals: 09/17/18 1406 BP: 119/64 Pulse: 84 Resp: 17 Temp: 37.2 C (98.9 F) TempSrc: Oral SpO2: 99% Weight: 211 lb (95.7 kg) Height: 6' (1.829 m) Constitutional: Patient alert oriented and in no acute distress. Resp: Clear to auscultation bilaterally, no wheezes or crackles, not in respiratory distress. CV: Regular rate and rhythm, normal S1 S2, no murmurs, rubs or gallops GI: Abdomin is soft, non-tender, non-distended, with normoactive bowel sounds; -fluid wave, -shifting dullness Skin: no rash, lesions, or erythema; spider angiomata noted throughout body Extremities: No clubbing, cyanosis or edema Assessment/Plan Landon Peguero is a 48 year old male seen in clinic today for: Hepatic cirrhosis, unspecified hepatic cirrhosis type, unspecified whether ascites present Hx of severe anemia Stable. Patient denies any acute issues. Latest labs a little over a month ago show stable hemoglobin. -lasix -propranolol -spironolactone -PO iron 325 mg qMWF - protonix -GI referral -follow up with GI/Hepatology for further work up for cirrhosis diagnosis and transplant evaluation IgA glomerulonephritis Possible CKD Patient was supposed to follow up with nephrology weeks ago but had to reschedule appointment. - follow up with nephrology Return to Clinic: 3 months Raj Jerez MD Internal Medicine PGY-2 [facility] Team Doctor number: [id number] Pager: [phone] documented in this encounter Plan of Treatment Date Type Specialty Care Team Description 11/18/2018 Office [place] [address] Health Maintenance Due Date Last Done Comments [...] hepatic cirrhosis type, unspecified whether ascites present - Primary documented in this encounter documented as of this encounter
--- OUTSIDE RECORDS SUMMARY | 2019-01-16 09:19 | XMS REPORT | Summary of Care ---
:1970 Author Organization [facility] - [facility] Address [address] [place] [address] Care Team Providers Name Role Phone Raj Jerez MD Primary Care Provider Reason for Referral (Routine) Status Reason Specialty Diagnoses / Procedures Referred By Referred To Contact Contact New Request Gastroenterology Diagnoses Hepatic cirrhosis, unspecified hepatic cirrhosis type, unspecified whether ascites present Vivek Lopez Procedures CONSULT/REFERRAL GASTROENTEROLOGY MD Vamshi [address] [place] [phone] Reason for Visit Reason Comments HEALTH MAINTENANCE Refill Request Encounter Details Date Type Department Care Team Description 09/17/2018 Office Visit [facility] Internal Vivek Lopez MD [address] [place] [address] Hepatic cirrhosis, Medicine - [place] Raj Jerez MD [address] [place] [address]. [place] [address] unspecified hepatic Primary Care [...] Overview: Added automatically from request for surgery [id number] Symptomatic anemia 02/21/2017 Cryptogenic cirrhosis of liver [...] Internal Medicine PGY-2 [place] Team Doctor number: [id number] Pager: [phone] documented in this encounter Plan of Treatment Date Type Specialty Care Team Description 11/18/2018 Office Visit [place] [address] Health Maintenance Due Date Last [...]
--- OUTSIDE RECORDS SUMMARY | 2019-01-16 09:19 | XMS REPORT | Summary of Care ---
:1970 Author Organization [facility] - [facility] Address [address] [place] [address] Care Team Providers Name Role Phone Raj Jerez MD Primary Care Provider Reason for Referral (Routine) Status Reason Specialty Diagnoses / Procedures Referred By Referred To Contact Contact New Request Gastroenterology Diagnoses Hepatic cirrhosis, unspecified hepatic cirrhosis type, unspecified whether ascites present Vivek Lopez Procedures CONSULT/REFERRAL GASTROENTEROLOGY MD Vamshi [address] [place] [phone] Reason for Visit Reason Comments HEALTH MAINTENANCE Refill Request Encounter Details Date Type Department Care Team Description 09/17/2018 Office Visit [facility] Internal Vivek Lopez MD [address] [place] [address] Hepatic cirrhosis, Medicine - [place] Raj Jerez MD [address] [place] [address]. [place] [address] unspecified hepatic Primary Care cirrhosis type, [facility] unspecified whether [address], ascites present [address] (Primary Dx) [place] [address] Allergies No Known Allergiesdocumented as [...] Overview: Added automatically from request for surgery [id number] Symptomatic anemia 02/21/2017 Cryptogenic cirrhosis of liver [...] Internal Medicine PGY-2 [place] Team Doctor number: [id number] Pager: [phone] documented in this encounter Plan of Treatment Date Type Specialty Care Team Description 11/18/2018 Office [place] [address] Health Maintenance Due Date Last [...]
--- OUTSIDE RECORDS SUMMARY | 2019-01-16 09:19 | XMS REPORT ---
:1970 [facility] Address [address] [place] [address] Dr. Shaffer [address] [place] [address] Care Team Providers Name Role Phone SHENG BERNAL Unavailable Unavailable Problems This patient has no known problems. Allergies, Adverse Reactions, Alerts This patient has no known allergies or adverse reactions. Medications This patient has no known medications. Results Test Description Test Time Test Comments Text Results Atomic Results Result Comments BLOOD CULTURE 2017-08-28 18:17:00 Test Item Value Reference Range Comments CULTURE (BEAKER) (test czob=2000) No growth in 5 days BLOOD [id number] 18:16:00 Test Item Value Reference Range Comments CULTURE (BEAKER) (test vxfv=4698) No growth in 5 days MITOCHONDRIA M2 ANTIBODY (IGG)2017-08-27 22:51:00 Test Item Value Reference Range Comments MITOCHONDRIA M2 AB (QUEST) (test <20.0 U See Note: Reference Range:NEGATIVE : < esud=[id number]) OR=20.0EQUIVOCAL: 20.1-24.9POSITIVE: > OR=25.0 Performing Lab [facility] [address] [address] Wilfredo Teixeira MD, PhD, MBABODY FLUID CULTURE + GRAM [id number] 12:08:00 Test Item Value Reference Range Comments CULTURE (BEAKER) (test fxiz=0025) No growth GRAM STAIN RESULT (BEAKER) (test <1+ White blood cells seen lfwn=9493) GRAM STAIN RESULT (BEAKER) (test No organisms seen ncbu=58607) [id number] 08:48:00 Test Item Value Reference Range Comments MAGNESIUM (BEAKER) (test cdyb=739) 1.5 mg/dL 1.6-2.6 COMPREHENSIVE METABOLIC [id number] 08:48:00 Test Item Value Reference Range Comments TOTAL PROTEIN (BEAKER) 5.9 gm/dL 6.0-8.3 (test wzuh=356) ALBUMIN (BEAKER) (test 3.1 g/dL 3.5-5.0 iqms=2608) ALKALINE PHOSPHATASE 125 U/L 40-150 (BEAKER) (test erva=927) BILIRUBIN TOTAL (BEAKER) 4.1 mg/dL 0.2-1.2 (test asrp=656) SODIUM (BEAKER) (test 132 meq/L 136-145 enxx=085) POTASSIUM (BEAKER) (test 3.7 meq/L 3.5-5.1 lwfm=150) CHLORIDE (BEAKER) (test 106 meq/L 98-107 cctn=981) CO2 (BEAKER) (test 18 meq/L 22-29 aytk=172) BLOOD UREA NITROGEN 10 mg/dL 7-21 (BEAKER) (test ehvr=119) CREATININE (BEAKER) (test 1.12 mg/dL 0.57-1.25 kgek=410) GLUCOSE RANDOM (BEAKER) 95 mg/dL 70-105 (test nvgj=512) CALCIUM (BEAKER) (test 8.5 mg/dL 8.4-10.2 smkx=501) AST (SGOT) (BEAKER) (test 42 U/L 5-34 xwds=628) ALT (SGPT) (BEAKER) (test 18 U/L 6-55 lmxh=077) EGFR (BEAKER) (test 70 mL/min/1.73 sq m ESTIMATED GFR IS NOT pnzh=5081) ACCURATE CREATININE CLEARANCE IN PREDICTING GLOMERULAR FILTRATION RATE. ESTIMATED GFR IS NOT APPLICABLE FOR DIALYSIS PATIENTS. Specimen moderately ictericPROTHROMBIN [id number] 05:59:00 Test Item Value Reference Range Comments PROTIME (BEAKER) (test eplg=150) 19.8 seconds 11.7-14.7 INR (BEAKER) (test nniv=111) 1.7 <=5.9 RECOMMENDED COUMADIN/WARFARIN INR THERAPY RANGESSTANDARD DOSE: 2.0 - 3.0 Includes: PROPHYLAXIS forvenous thrombosis, systemic embolization; TREATMENT for venous thrombosis and/or pulmonary embolus.HIGH RISK: Target INR is 2.5-3.5 for patients with mechanical heart valves.CBC W/PLT COUNT & AUTO [id number] 05:50:00 Test Item Value Reference Range Comments WHITE BLOOD CELL COUNT (BEAKER) (test jkth=336) 7.3 K/ L 3.5-10.5 RED BLOOD CELL COUNT (BEAKER) (test zvro=346) 2.80 M/ L 4.63-6.08 HEMOGLOBIN (BEAKER) (test sugp=377) 7.8 GM/DL 13.7-17.5 HEMATOCRIT (BEAKER) (test pnzn=811) 25.6 % 40.1-51.0 MEAN CORPUSCULAR VOLUME (BEAKER) (test hcpb=962) 91.4 fL 79.0-92.2 MEAN CORPUSCULAR HEMOGLOBIN (BEAKER) (test 27.9 pg 25.7-32.2 vcqa=851) MEAN CORPUSCULAR HEMOGLOBIN CONC (BEAKER) (test 30.5 GM/DL 32.3-36.5 wdos=850) RED CELL DISTRIBUTION WIDTH (BEAKER) (test 17.4 % 11.6-14.4 ffhl=123) PLATELET COUNT (BEAKER) (test fbih=972) 69 K/CU MM 150-450 MEAN PLATELET VOLUME (BEAKER) (test xymm=242) 10.6 fL 9.4-12.4 NUCLEATED RED BLOOD CELLS (BEAKER) (test 0 /100 WBC 0-0 pypq=887) NEUTROPHILS RELATIVE PERCENT (BEAKER) (test 70 % mppi=835) LYMPHOCYTES RELATIVE PERCENT (BEAKER) (test 13 % whpr=587) MONOCYTES RELATIVE PERCENT (BEAKER) (test 11 % myym=472) EOSINOPHILS RELATIVE PERCENT (BEAKER) (test 5 % qqtk=099) BASOPHILS RELATIVE PERCENT (BEAKER) (test 1 % fukn=619) NEUTROPHILS ABSOLUTE COUNT (BEAKER) (test 5.14 K/ L 1.78-5.38 buqs=706) LYMPHOCYTES ABSOLUTE COUNT (BEAKER) (test 0.98 K/ L 1.32-3.57 fomj=767) MONOCYTES ABSOLUTE COUNT (BEAKER) (test epjy=867) 0.77 K/ L 0.30-0.82 EOSINOPHILS ABSOLUTE COUNT (BEAKER) (test 0.35 K/ L 0.04-0.54 tqun=619) BASOPHILS ABSOLUTE COUNT (BEAKER) (test vlbc=457) 0.04 K/ L 0.01-0.08 IMMATURE GRANULOCYTES-RELATIVE PERCENT (BEAKER) 1 % 0-1 (test cqiw=9789) ACTIN (SMOOTH MUSCLE) ANTIBODY, [id number] 21:53:00 Test Item Value Reference Range Comments ANTI-SMOOTH MUSCLE AB <20 U See Note: Reference Range:<20 NEGATIVE> (QUEST) (test jlju=[id number]) OR=20 POSITIVE Antibodies recognizing actin are the main componentof smooth muscle antibodies associated withautoimmune liver disease. Actin antibodies arefound in approximately 75% of patients withautoimmune hepatitis (AIH) type 1, shqtaxrwokkmt86% of patients with autoimmune cholangitis,approximately 30% of patients with primary biliarycirrhosis, and approximately 2% of healthy people.High values are closely correlated with AIH type 1. Performing Lab [facility] [address] [place] [address] Wilfredo Teixeira MD, PhD, MBAU/S, [id number] 12:31:00Reason for exam:->ascitesFINAL REPORT Indication: Ascites. Technique: Ultrasound guided paracentesis. Findings:Preliminary ultrasound confirms ascites. A safe window was identified in the right lower quadrant. The procedure was explained to the patient and informed consent was signed. The skin was marked and prepped in standard sterile fashion. 2% lidocaine was used for local anesthesia. A 5 Lao needle catheter system was advanced into the peritoneal space. 4200 cc clear yellow fluid was taken off.Patient tolerated the procedure well. Impression: Ultrasound guided paracentesis. Signed: Kwasi Rogers [facility] Verified Date/ Time: 08/26/2017 12:31:09 Reading Location: [facility] P006J Ultrasound Reading Room 12: 31 [id number] 06:37:00 Test Item Value Reference Range Comments MAGNESIUM (BEAKER) (test 1.7 mg/dL 1.6-2.6 Specimen slightly hemolyzed yldt=264) COMPREHENSIVE METABOLIC [id number] 06:37:00 Test Item Value Reference Range Comments TOTAL PROTEIN (BEAKER) 6.0 gm/dL 6.0-8.3 Specimen slightly (test bvmp=508) hemolyzed ALBUMIN (BEAKER) (test 2.8 g/dL 3.5-5.0 Specimen slightly kmal=8152) hemolyzed ALKALINE PHOSPHATASE 130 U/L 40-150 (BEAKER) (test cgtt=750) BILIRUBIN TOTAL (BEAKER) 3.3 mg/dL 0.2-1.2 Specimen slightly (test wzlu=092) hemolyzed SODIUM (BEAKER) (test 133 meq/L 136-145 jpci=581) POTASSIUM (BEAKER) (test 4.5 meq/L 3.5-5.1 Specimen slightly jqno=581) hemolyzed CHLORIDE (BEAKER) (test 110 meq/L 98-107 auxj=281) CO2 (BEAKER) (test 16 meq/L 22-29 jfzo=816) BLOOD UREA NITROGEN 12 mg/dL 7-21 (BEAKER) (test nfro=776) CREATININE (BEAKER) (test 1.12 mg/dL 0.57-1.25 Specimen slightly jbyr=641) hemolyzed GLUCOSE RANDOM (BEAKER) 90 mg/dL 70-105 (test vxnk=682) CALCIUM (BEAKER) (test 8.3 mg/dL 8.4-10.2 ssci=840) AST (SGOT) (BEAKER) (test 57 U/L 5-34 Specimen slightly tzzc=752) hemolyzed ALT (SGPT) (BEAKER) (test 23 U/L 6-55 Specimen slightly djcy=623) hemolyzed EGFR (BEAKER) (test 70 mL/min/1.73 sq m ESTIMATED GFR IS NOT qpqr=0534) ACCURATE CREATININE CLEARANCE IN PREDICTING GLOMERULAR FILTRATION RATE. ESTIMATED GFR IS NOT APPLICABLE FOR DIALYSIS PATIENTS. Specimen slightly ictericPROTHROMBIN [id number] 06:20:00 Test Item Value Reference Range Comments PROTIME (BEAKER) (test bogq=554) 20.9 seconds 11.7-14.7 INR (BEAKER) (test xvpl=541) 1.8 <=5.9 RECOMMENDED COUMADIN/WARFARIN INR THERAPY RANGESSTANDARD DOSE: 2.0 - 3.0 Includes: PROPHYLAXIS forvenous thrombosis, systemic embolization; TREATMENT for venous thrombosis and/or pulmonary embolus.HIGH RISK: Target INR is 2.5-3.5 for patients with mechanical heart valves.CBC W/PLT COUNT & AUTO [id number] 05:43:00 Test Item Value Reference Range Comments WHITE BLOOD CELL COUNT (BEAKER) (test ztcb=950) 7.8 K/ L 3.5-10.5 RED BLOOD CELL COUNT (BEAKER) (test ldbv=187) 3.00 M/ L 4.63-6.08 HEMOGLOBIN (BEAKER) (test scwd=947) 8.3 GM/DL 13.7-17.5 HEMATOCRIT (BEAKER) (test hxhd=610) 27.5 % 40.1-51.0 MEAN CORPUSCULAR VOLUME (BEAKER) (test izkf=831) 91.7 fL 79.0-92.2 MEAN CORPUSCULAR HEMOGLOBIN (BEAKER) (test 27.7 pg 25.7-32.2 kgpg=446) MEAN CORPUSCULAR HEMOGLOBIN CONC (BEAKER) (test 30.2 GM/DL 32.3-36.5 ieoc=732) RED CELL DISTRIBUTION WIDTH (BEAKER) (test 17.4 % 11.6-14.4 nbvs=357) PLATELET COUNT (BEAKER) (test yuvn=155) 74 K/CU MM 150-450 MEAN PLATELET VOLUME (BEAKER) (test cttc=967) 10.2 fL 9.4-12.4 NUCLEATED RED BLOOD CELLS (BEAKER) (test 0 /100 WBC 0-0 sanh=087) NEUTROPHILS RELATIVE PERCENT (BEAKER) (test 71 % hahi=559) LYMPHOCYTES RELATIVE PERCENT (BEAKER) (test 12 % jqfb=969) MONOCYTES RELATIVE PERCENT (BEAKER) (test 12 % pkrn=328) EOSINOPHILS RELATIVE PERCENT (BEAKER) (test 4 % amzp=471) BASOPHILS RELATIVE PERCENT (BEAKER) (test 0 % dpdf=199) NEUTROPHILS ABSOLUTE COUNT (BEAKER) (test 5.58 K/ L 1.78-5.38 ikix=735) LYMPHOCYTES ABSOLUTE COUNT (BEAKER) (test 0.90 K/ L 1.32-3.57 uvxa=796) MONOCYTES ABSOLUTE COUNT (BEAKER) (test fazp=657) 0.92 K/ L 0.30-0.82 EOSINOPHILS ABSOLUTE COUNT (BEAKER) (test 0.34 K/ L 0.04-0.54 sakp=515) BASOPHILS ABSOLUTE COUNT (BEAKER) (test iswb=069) 0.03 K/ L 0.01-0.08 IMMATURE GRANULOCYTES-RELATIVE PERCENT (BEAKER) 1 % 0-1 (test ftoq=3614) POCT-GLUCOSE [id number] 21:48:00 Test Item Value Reference Range Comments POC-GLUCOSE METER (BEAKER) 141 mg/dL 70-[address] [facility]test nbpe=4438) [facility] [address] POCT-GLUCOSE [id number] 16:30:00 Test Item Value Reference Range Comments POC-GLUCOSE METER (BEAKER) 121 mg/dL 70-110 TESTED AT [address] (test awfi=5092) [facility] [address] TISSUE [id number] 16:19:00Surgical Pathology Report Case: [id number] Authorizing Provider: Jer Carney, Collected: 08/24/2017 1438 MD OrderingLocation: [place] [address] ICU Received: 2017 0750 Pathologist: Alex Rob MD Specimen: Polyp, Colon - Rectum PART A RECTAL POLYP, BIOPSY:TUBULAR ADENOMA. Signing Pathologist Direct Phone Line: [phone] signed by Alex Rob MD on 08/25/2017 at 4:19 [id number] bleedRectum colon polyp The specimen is received in a formalin- filled container labeled with the patient's information and labeled "rectum colon polyp" and consists of a 0.4 cm fragment of gasca tissue submitted in A1. CG /ew PERFORMED.[id number] 16:05:00Medical Cytology Report Case: [id number] Authorizing Provider : Sheng Bernal MD Collected: 08/24/2017 1121 Ordering Location: [place] [address] ICU Received: 2017 1320 Pathologist: Scott Cuevas MD Specimen: Abdomen PERITONEAL FLUID ( CYTOSPINS): - NEGATIVE FOR MALIGNANCY (SEE COMMENT) Signing Pathologist Direct Phone Line:[phone] signed by Scott Cuevas MD on 2017 at 4:05 PMCytospins show few clusters of mesothelial cells with reactive changes and macrophages, in a background of mixed inflammatory cells. No diagnostic features of malignancy are seen. Only a small amount of fluid was received forcytology evaluation. If clinically discordant, repeat thoracentesis with larger amount of fluid sentfor cytology evaluation may be considered. [address]Gizvbfy, cirrhosisPERITONEAL FLUID5 mls yellow; 4 cytospinsCollected: [id number]: [id number] [facility], Department of Pathology, [address] [place] [address], [facility], [facility], [address] [place] [address], HPOHXQGSNZCJLE A (IGA)2017-08-25 15:07:00 Test Item Value Reference Range Comments IMMUNOGLOBULIN A (IGA) (BEAKER) (test ntqj=125) 942 mg/dL 63-484 IMMUNOGLOBULIN G (IGG)2017-08-25 14:56:00 Test Item Value Reference Range Comments IMMUNOGLOBULIN G (IGG) (BEAKER) (test zwxy=107) 1174 mg/dL 540-1822 IMMUNOGLOBULIN M (IGM)2017-08-25 14:56:00 Test Item Value Reference Range Comments IMMUNOGLOBULIN M (IGM) (BEAKER) (test ratt=002) 76 mg/dL 22-293 CHLORIDE, RANDOM [id number] 14:52:00 Test Item Value Reference Range Comments CHLORIDE URINE (BEAKER) (test pyxf=235) 41 meq/L Reference Range: No NormalsPOTASSIUM, RANDOM [id number] 14:52:00 Test Item Value Reference Range Comments POTASSIUM URINE (BEAKER) (test ahou=323) 16.3 meq/L Reference Range: No NormalsSODIUM, RANDOM [id number] 14:52:00 Test Item Value Reference Range Comments SODIUM URINE (BEAKER) (test nehr=915) 38 meq/L Reference Range: No NormalsCBC W/PLT COUNT & AUTO [id number] 13: 52:00 Test Item Value Reference Range Comments WHITE BLOOD CELL COUNT (BEAKER) (test kpoi=508) 7.4 K/ L 3.5-10.5 RED BLOOD CELL COUNT (BEAKER) (test owvd=056) 3.00 M/ L 4.63-6.08 HEMOGLOBIN (BEAKER) (test ymst=050) 8.3 GM/DL 13.7-17.5 HEMATOCRIT (BEAKER) (test whbz=745) 27.6 % 40.1-51.0 MEAN CORPUSCULAR VOLUME (BEAKER) (test hlfs=544) 92.0 fL 79.0-92.2 MEAN CORPUSCULAR HEMOGLOBIN (BEAKER) (test 27.7 pg 25.7-32.2 cmqb=954) MEAN CORPUSCULAR HEMOGLOBIN CONC (BEAKER) (test 30.1 GM/DL 32.3-36.5 ckjf=115) RED CELL DISTRIBUTION WIDTH (BEAKER) (test 16.9 % 11.6-14.4 tllw=988) PLATELET COUNT (BEAKER) (test vojk=071) 75 K/CU MM 150-450 MEAN PLATELET VOLUME (BEAKER) (test souj=264) 10.5 fL 9.4-12.4 NUCLEATED RED BLOOD CELLS (BEAKER) (test 0 /100 WBC 0-0 yaue=827) NEUTROPHILS RELATIVE PERCENT (BEAKER) (test 74 % mvmt=652) LYMPHOCYTES RELATIVE PERCENT (BEAKER) (test 10 % yufw=686) MONOCYTES RELATIVE PERCENT (BEAKER) (test 11 % twzy=115) EOSINOPHILS RELATIVE PERCENT (BEAKER) (test 5 % luoy=306) BASOPHILS RELATIVE PERCENT (BEAKER) (test 1 % jgay=997) NEUTROPHILS ABSOLUTE COUNT (BEAKER) (test 5.48 K/ L 1.78-5.38 wemk=148) LYMPHOCYTES ABSOLUTE COUNT (BEAKER) (test 0.71 K/ L 1.32-3.57 goke=899) MONOCYTES ABSOLUTE COUNT (BEAKER) (test jarl=576) 0.79 K/ L 0.30-0.82 EOSINOPHILS ABSOLUTE COUNT (BEAKER) (test 0.37 K/ L 0.04-0.54 jihp=902) BASOPHILS ABSOLUTE COUNT (BEAKER) (test eiod=869) 0.04 K/ L 0.01-0.08 IMMATURE GRANULOCYTES-RELATIVE PERCENT (BEAKER) 1 % 0-1 (test ulsp=6350) POCT-GLUCOSE [id number] 12:37:00 Test Item Value Reference Range Comments POC-GLUCOSE METER (BEAKER) 147 mg/dL 70-[address] [facility] [address] [facility] (test fumy=4394) [facility] [address] COMPREHENSIVE METABOLIC [id number] 05:00:00 Test Item Value Reference Range Comments TOTAL PROTEIN (BEAKER) 5.6 gm/dL 6.0-8.3 (test ctbe=611) ALBUMIN (BEAKER) (test 2.7 g/dL 3.5-5.0 asvu=1840) ALKALINE PHOSPHATASE 106 U/L 40-150 (BEAKER) (test ezys=432) BILIRUBIN TOTAL (BEAKER) 2.8 mg/dL 0.2-1.2 (test qdet=439) SODIUM (BEAKER) (test 133 meq/L 136-145 fgsm=342) POTASSIUM (BEAKER) (test 3.8 meq/L 3.5-5.1 uyqu=232) CHLORIDE (BEAKER) (test 109 meq/L 98-107 zjnj=938) CO2 (BEAKER) (test 15 meq/L 22-29 dsru=270) BLOOD UREA NITROGEN 17 mg/dL 7-21 (BEAKER) (test bjew=660) CREATININE (BEAKER) (test 1.10 mg/dL 0.57-1.25 trmx=820) GLUCOSE RANDOM (BEAKER) 97 mg/dL 70-105 (test alsv=178) CALCIUM (BEAKER) (test 7.9 mg/dL 8.4-10.2 kfkr=118) AST (SGOT) (BEAKER) (test 52 U/L 5-34 imfn=065) ALT (SGPT) (BEAKER) (test 24 U/L 6-55 hfjn=674) EGFR (BEAKER) (test 71 mL/min/1.73 sq m ESTIMATED GFR IS NOT cqzh=8253) ACCURATE CREATININE CLEARANCE IN PREDICTING GLOMERULAR FILTRATION RATE. ESTIMATED GFR IS NOT APPLICABLE FOR DIALYSIS PATIENTS. Specimen slightly ictericCBC W/PLT COUNT & AUTO [id number] 04:32 :00 Test Item Value Reference Range Comments WHITE BLOOD CELL COUNT (BEAKER) (test iump=798) 7.0 K/ L 3.5-10.5 RED BLOOD CELL COUNT (BEAKER) (test fvhk=931) 2.55 M/ L 4.63-6.08 HEMOGLOBIN (BEAKER) (test mnaj=979) 7.0 GM/DL 13.7-17.5 HEMATOCRIT (BEAKER) (test gmsa=623) 23.2 % 40.1-51.0 MEAN CORPUSCULAR VOLUME (BEAKER) (test zxgf=171) 91.0 fL 79.0-92.2 MEAN CORPUSCULAR HEMOGLOBIN (BEAKER) (test 27.5 pg 25.7-32.2 hyva=524) MEAN CORPUSCULAR HEMOGLOBIN CONC (BEAKER) (test 30.2 GM/DL 32.3-36.5 llnw=109) RED CELL DISTRIBUTION WIDTH (BEAKER) (test 16.9 % 11.6-14.4 jbuz=184) PLATELET COUNT (BEAKER) (test osgt=026) 68 K/CU MM 150-450 MEAN PLATELET VOLUME (BEAKER) (test vapc=223) 10.5 fL 9.4-12.4 NUCLEATED RED BLOOD CELLS (BEAKER) (test 0 /100 WBC 0-0 rhvn=169) NEUTROPHILS RELATIVE PERCENT (BEAKER) (test 72 % updo=033) LYMPHOCYTES RELATIVE PERCENT (BEAKER) (test 12 % tjfs=017) MONOCYTES RELATIVE PERCENT (BEAKER) (test 10 % zkxi=915) EOSINOPHILS RELATIVE PERCENT (BEAKER) (test 5 % gouw=967) BASOPHILS RELATIVE PERCENT (BEAKER) (test 1 % ppju=992) NEUTROPHILS ABSOLUTE COUNT (BEAKER) (test 5.01 K/ L 1.78-5.38 rdhu=043) LYMPHOCYTES ABSOLUTE COUNT (BEAKER) (test 0.84 K/ L 1.32-3.57 pkft=431) MONOCYTES ABSOLUTE COUNT (BEAKER) (test wpww=417) 0.71 K/ L 0.30-0.82 EOSINOPHILS ABSOLUTE COUNT (BEAKER) (test 0.35 K/ L 0.04-0.54 oiuo=851) BASOPHILS ABSOLUTE COUNT (BEAKER) (test agyc=032) 0.04 K/ L 0.01-0.08 IMMATURE GRANULOCYTES-RELATIVE PERCENT (BEAKER) 1 % 0-1 (test mkip=5229) POCT-GLUCOSE [id number] 00:30:00 Test Item Value Reference Range Comments POC-GLUCOSE METER (BEAKER) 119 mg/dL 70-[address] [facility] [address] [facility] (test liay=9039) [place] [address] CBC W/PLT COUNT & AUTO [id number] 21:16:00 Test Item Value Reference Range Comments WHITE BLOOD CELL COUNT (BEAKER) (test rsia=910) 7.2 K/ L 3.5-10.5 RED BLOOD CELL COUNT (BEAKER) (test cjjq=428) 2.50 M/ L 4.63-6.08 HEMOGLOBIN (BEAKER) (test ybql=957) 7.0 GM/DL 13.7-17.5 HEMATOCRIT (BEAKER) (test lved=129) 22.7 % 40.1-51.0 MEAN CORPUSCULAR VOLUME (BEAKER) (test mxyo=298) 90.8 fL 79.0-92.2 MEAN CORPUSCULAR HEMOGLOBIN (BEAKER) (test 28.0 pg 25.7-32.2 hllo=646) MEAN CORPUSCULAR HEMOGLOBIN CONC (BEAKER) (test 30.8 GM/DL 32.3-36.5 nwlu=100) RED CELL DISTRIBUTION WIDTH (BEAKER) (test 17.1 % 11.6-14.4 gfuy=033) PLATELET COUNT (BEAKER) (test eqax=727) 83 K/CU MM 150-450 MEAN PLATELET VOLUME (BEAKER) (test lbwe=319) 11.7 fL 9.4-12.4 NUCLEATED RED BLOOD CELLS (BEAKER) (test 0 /100 WBC 0-0 njhd=524) NEUTROPHILS RELATIVE PERCENT (BEAKER) (test 76 % vkom=661) LYMPHOCYTES RELATIVE PERCENT (BEAKER) (test 9 % yxvg=351) MONOCYTES RELATIVE PERCENT (BEAKER) (test 10 % uakw=039) EOSINOPHILS RELATIVE PERCENT (BEAKER) (test 4 % eerg=137) BASOPHILS RELATIVE PERCENT (BEAKER) (test 0 % nrmz=933) NEUTROPHILS ABSOLUTE COUNT (BEAKER) (test 5.44 K/ L 1.78-5.38 jupr=386) LYMPHOCYTES ABSOLUTE COUNT (BEAKER) (test 0.66 K/ L 1.32-3.57 szzu=994) MONOCYTES ABSOLUTE COUNT (BEAKER) (test neqr=414) 0.72 K/ L 0.30-0.82 EOSINOPHILS ABSOLUTE COUNT (BEAKER) (test 0.28 K/ L 0.04-0.54 gegl=709) BASOPHILS ABSOLUTE COUNT (BEAKER) (test fvvc=175) 0.03 K/ L 0.01-0.08 IMMATURE GRANULOCYTES-RELATIVE PERCENT (BEAKER) 1 % 0-1 (test muhn=4052) POCT-GLUCOSE [id number] 17:35:00 Test Item Value Reference Range Comments POC-GLUCOSE METER (BEAKER) 212 mg/dL 70-[address] [facility] [address] (test vohv=7043) [facility] [address] U/S, [id number] 17:09:00Reason for exam:->diagnostic and theraputic r/u SBPShould this be performed at the bedside?->NoFINAL REPORT Procedure: Ultrasound Guided Paracentesis: Pre procedure Diagnosis: Ascites Post procedure Diagnosis: Same Sedation: None Local anesthesia: 1% Xylocaine. Description/findings: The risks, benefits, and alternatives of the procedure were explained. Questions were answered, and informed, written consent was then obtained. The right lower quadrant was prepped and draped and local anesthesia given. A 5 F paracentesis catheter was inserted into the peritoneal space and 3200 cc of clear yellow ascites was aspirated. Specimen were collected for the lab. No immediate complications were noted. Estimated blood loss: none. Impression: Uncomplicated ultrasound-guided paracentesis performed by Kelsi Meza PA-C. Signed: Karen [facility] Verified Date/Time: 08/24/2017 17:09:45 Reading Location: [address] Consult Reading Room Electronically signed by:KAREN MATTHEW M.D. on 2017 05:09 PMCBC W/PLT COUNT & AUTO [id number] 15:25:00 Test Item Value Reference Range Comments WHITE BLOOD CELL COUNT (BEAKER) (test tasf=856) 8.0 K/ L 3.5-10.5 RED BLOOD CELL COUNT (BEAKER) (test drti=773) 2.81 M/ L 4.63-6.08 HEMOGLOBIN (BEAKER) (test uwuq=192) 7.8 GM/DL 13.7-17.5 HEMATOCRIT (BEAKER) (test arow=842) 25.1 % 40.1-51.0 MEAN CORPUSCULAR VOLUME (BEAKER) (test lobi=650) 89.3 fL 79.0-92.2 MEAN CORPUSCULAR HEMOGLOBIN (BEAKER) (test 27.8 pg 25.7-32.2 ftmc=321) MEAN CORPUSCULAR HEMOGLOBIN CONC (BEAKER) (test 31.1 GM/DL 32.3-36.5 anis=305) RED CELL DISTRIBUTION WIDTH (BEAKER) (test 17.0 % 11.6-14.4 vjji=744) PLATELET COUNT (BEAKER) (test yysc=056) 99 K/CU MM 150-450 MEAN PLATELET VOLUME (BEAKER) (test pjpi=145) 12.2 fL 9.4-12.4 NUCLEATED RED BLOOD CELLS (BEAKER) (test 0 /100 WBC 0-0 qdgw=381) NEUTROPHILS RELATIVE PERCENT (BEAKER) (test 76 % wmne=110) LYMPHOCYTES RELATIVE PERCENT (BEAKER) (test 10 % jncj=831) MONOCYTES RELATIVE PERCENT (BEAKER) (test 8 % wjec=589) EOSINOPHILS RELATIVE PERCENT (BEAKER) (test 5 % rlkq=371) BASOPHILS RELATIVE PERCENT (BEAKER) (test 1 % grwc=984) NEUTROPHILS ABSOLUTE COUNT (BEAKER) (test 6.01 K/ L 1.78-5.38 bmgj=155) LYMPHOCYTES ABSOLUTE COUNT (BEAKER) (test 0.77 K/ L 1.32-3.57 innv=611) MONOCYTES ABSOLUTE COUNT (BEAKER) (test zowh=210) 0.63 K/ L 0.30-0.82 EOSINOPHILS ABSOLUTE COUNT (BEAKER) (test 0.42 K/ L 0.04-0.54 xgwt=844) BASOPHILS ABSOLUTE COUNT (BEAKER) (test wcsh=076) 0.05 K/ L 0.01-0.08 IMMATURE GRANULOCYTES-RELATIVE PERCENT (BEAKER) 1 % 0-1 (test luuo=2652) BODY FLUID CELL COUNT WITH [id number] 14:49:00 Test Item Value Reference Range Comments APPEARANCE FLUID (BEAKER) (test exuc=411) Clear Clear COLOR FLUID (BEAKER) (test dlri=003) Yellow Colorless, Straw RBC FLUID (BEAKER) (test agvw=204) 575 /cu mm <=1 ADJUSTED WBC FLUID (BEAKER) (test papw=0775) 83 /cu mm <=5 LINING CELLS (BEAKER) (test zokm=1339) 7 /cu mm <=1 NEUTROPHILS FLUID (BEAKER) (test cflm=5607) 1 % LYMPHS FLUID (BEAKER) (test guzt=144) 51 % MONO/MACROPHAGE FLUID (BEAKER) (test rqdy=594) 48 % EOSINOPHILS FLUID (BEAKER) (test ypmm=000) 0 % BASO FLUID (BEAKER) (test slun=310) 0 % CONTAINER BODY FLUID (BEAKER) (test zosc=5894) EDTA Tube LACTATE DEHYDROGENASE (LDH), BODY [id number] 13:49:00 Test Item Value Reference Range Comments LACTATE DEHYDROGENASE FLUID (BEAKER) (test zecg=239) < U/L Absence of reference range indicates that normals have not been defined.Assay performance has not been validated for this type of specimen.PROTEIN, BODY [id number] 13:49:00 Test Item Value Reference Range Comments PROTEIN FLUID (BEAKER) (test atyd=130) 1.0 g/dL Absence of reference range indicates that normals have not been defined.Assay performance has not been validated for this type of specimen.GLUCOSE, BODY [id number] 13:49:00 Test Item Value Reference Range Comments GLUCOSE, BODY FLUID (BEAKER) (test yeuf=4138) 114 mg/dL Absence of reference range indicates that normals have not been defined.Assay performance has not been validated for this type of specimen.ALBUMIN, BODY [id number] 13:45:00 Test Item Value Reference Range Comments ALBUMIN FLUID (BEAKER) (test cbna=693) 0.5 gm/dL Reference Range: No Normals Assay performance has not been validated for this type of specimen.POCT-GLUCOSE [id number] 12:21:00 Test Item Value Reference Range Comments POC-GLUCOSE METER (BEAKER) 114 mg/dL 70-110 TESTED AT [address] (test hwoz=4695) [facility] [address] ANTI-NUCLEAR ANTIBODY (JAMAL)2017-08-24 09:24:00 Test Item Value Reference Range Comments ANTI-NUCLEAR ANTIBODY (JAMAL) (BEAKER) (test Negative Negative czcn=231) Test performed by IFA method.CBC W/PLT COUNT & AUTO [id number] 08:29:00 Test Item Value Reference Range Comments WHITE BLOOD CELL COUNT (BEAKER) (test pjof=632) 7.9 K/ L 3.5-10.5 RED BLOOD CELL COUNT (BEAKER) (test rlue=016) 2.72 M/ L 4.63-6.08 HEMOGLOBIN (BEAKER) (test teia=218) 7.4 GM/DL 13.7-17.5 HEMATOCRIT (BEAKER) (test yaoj=174) 24.6 % 40.1-51.0 MEAN CORPUSCULAR VOLUME (BEAKER) (test rvuk=977) 90.4 fL 79.0-92.2 MEAN CORPUSCULAR HEMOGLOBIN (BEAKER) (test 27.2 pg 25.7-32.2 ljam=036) MEAN CORPUSCULAR HEMOGLOBIN CONC (BEAKER) (test 30.1 GM/DL 32.3-36.5 hetc=148) RED CELL DISTRIBUTION WIDTH (BEAKER) (test 16.7 % 11.6-14.4 nmqx=645) PLATELET COUNT (BEAKER) (test rpcx=866) 77 K/CU MM 150-450 MEAN PLATELET VOLUME (BEAKER) (test fist=614) 11.0 fL 9.4-12.4 NUCLEATED RED BLOOD CELLS (BEAKER) (test 0 /100 WBC 0-0 yhac=561) NEUTROPHILS RELATIVE PERCENT (BEAKER) (test 71 % rzvp=855) LYMPHOCYTES RELATIVE PERCENT (BEAKER) (test 12 % dwwu=775) MONOCYTES RELATIVE PERCENT (BEAKER) (test 10 % clmg=830) EOSINOPHILS RELATIVE PERCENT (BEAKER) (test 6 % pjnm=902) BASOPHILS RELATIVE PERCENT (BEAKER) (test 1 % koww=792) NEUTROPHILS ABSOLUTE COUNT (BEAKER) (test 5.59 K/ L 1.78-5.38 apbl=969) LYMPHOCYTES ABSOLUTE COUNT (BEAKER) (test 0.92 K/ L 1.32-3.57 ilid=557) MONOCYTES ABSOLUTE COUNT (BEAKER) (test kdjo=853) 0.80 K/ L 0.30-0.82 EOSINOPHILS ABSOLUTE COUNT (BEAKER) (test 0.47 K/ L 0.04-0.54 fgkk=016) BASOPHILS ABSOLUTE COUNT (BEAKER) (test ocdf=474) 0.06 K/ L 0.01-0.08 IMMATURE GRANULOCYTES-RELATIVE PERCENT (BEAKER) 1 % 0-1 (test whja=7143) COMPREHENSIVE METABOLIC [id number] 07:26:00 Test Item Value Reference Range Comments TOTAL PROTEIN (BEAKER) 5.4 gm/dL 6.0-8.3 (test njyo=681) ALBUMIN (BEAKER) (test 2.4 g/dL 3.5-5.0 kahy=1448) ALKALINE PHOSPHATASE 118 U/L 40-150 (BEAKER) (test fgiu=277) BILIRUBIN TOTAL (BEAKER) 2.5 mg/dL 0.2-1.2 (test zvxa=447) SODIUM (BEAKER) (test 134 meq/L 136-145 wutj=614) POTASSIUM (BEAKER) (test 3.7 meq/L 3.5-5.1 krif=772) CHLORIDE (BEAKER) (test 110 meq/L 98-107 cdur=313) CO2 (BEAKER) (test 17 meq/L 22-29 ahdt=025) BLOOD UREA NITROGEN 25 mg/dL 7-21 (BEAKER) (test wesy=772) CREATININE (BEAKER) (test 1.37 mg/dL 0.57-1.25 ypkp=625) GLUCOSE RANDOM (BEAKER) 107 mg/dL 70-105 (test rplk=247) CALCIUM (BEAKER) (test 7.6 mg/dL 8.4-10.2 mkxk=485) AST (SGOT) (BEAKER) (test 69 U/L 5-34 isuq=981) ALT (SGPT) (BEAKER) (test 32 U/L 6-55 xgnh=479) EGFR (BEAKER) (test 55 mL/min/1.73 sq m ESTIMATED GFR IS NOT jfky=1153) ACCURATE CREATININE CLEARANCE IN PREDICTING GLOMERULAR FILTRATION RATE. ESTIMATED GFR IS NOT APPLICABLE FOR DIALYSIS PATIENTS. Specimen slightly [id number] 06:56:00 Test Item Value Reference Range Comments FIBRINOGEN LEVEL (BEAKER) (test mfub=547) 185 mg/dl 225-434 PT/[id number] 06:50:00 Test Item Value Reference Range Comments PROTIME (BEAKER) (test mkhl=881) 17.9 seconds 11.7-14.7 INR (BEAKER) (test gehn=498) 1.5 <=5.9 PARTIAL THROMBOPLASTIN TIME (BEAKER) (test 38.3 seconds 22.5-36.0 halk=348) RECOMMENDED COUMADIN/WARFARIN INR THERAPY RANGESSTANDARD DOSE: 2.0 - 3.0 Includes: PROPHYLAXIS forvenous thrombosis, systemic embolization; TREATMENT for venous thrombosis and/or pulmonary embolus.HIGH RISK: Target INR is 2.5-3.5 for patients with mechanical heart valves.PROTHROMBIN TIME/[id number] 06:49: 00 Test Item Value Reference Range Comments PROTIME (BEAKER) (test mrus=112) 17.9 seconds 11.7-14.7 INR (BEAKER) (test fjdj=372) 1.5 <=5.9 RECOMMENDED COUMADIN/WARFARIN INR THERAPY RANGESSTANDARD DOSE: 2.0 - 3.0 Includes: PROPHYLAXIS forvenous thrombosis, systemic embolization; TREATMENT for venous thrombosis and/or pulmonary embolus.HIGH RISK: Target INR is 2.5-3.5 for patients with mechanical heart valves.[id number] 06:08:00 Test Item Value Reference Range Comments FIBRINOGEN LEVEL (BEAKER) (test mznr=984) < mg/dl 225-434 PROTHROMBIN TIME/[id number] 06:08:00 Test Item Value Reference Range Comments PROTIME (BEAKER) (test kskd=197) > seconds 11.7-14.7 INR (BEAKER) (test fbkf=997) > <=5.9 RECOMMENDED COUMADIN/WARFARIN INR THERAPY RANGESSTANDARD DOSE: 2.0 - 3.0 Includes: PROPHYLAXIS forvenous thrombosis, systemic embolization; TREATMENT for venous thrombosis and/or pulmonary embolus.HIGH RISK: Target INR is 2.5-3.5 for patients with mechanical heart valves.[id number] 03:07:00 Test Item Value Reference Range Comments FERRITIN (BEAKER) (test oiaa=601) 41 ng/mL 5-275 CBC W/PLT COUNT & AUTO [id number] 00:15:00 Test Item Value Reference Range Comments WHITE BLOOD CELL COUNT (BEAKER) (test twxz=502) 10.2 K/ L 3.5-10.5 RED BLOOD CELL COUNT (BEAKER) (test dsdb=461) 3.04 M/ L 4.63-6.08 HEMOGLOBIN (BEAKER) (test ypjr=925) 8.3 GM/DL 13.7-17.5 HEMATOCRIT (BEAKER) (test taxq=815) 27.5 % 40.1-51.0 MEAN CORPUSCULAR VOLUME (BEAKER) (test imuw=024) 90.5 fL 79.0-92.2 MEAN CORPUSCULAR HEMOGLOBIN (BEAKER) (test 27.3 pg 25.7-32.2 yjye=807) MEAN CORPUSCULAR HEMOGLOBIN CONC (BEAKER) (test 30.2 GM/DL 32.3-36.5 ueis=211) RED CELL DISTRIBUTION WIDTH (BEAKER) (test 16.7 % 11.6-14.4 snzo=531) PLATELET COUNT (BEAKER) (test feji=729) 103 K/CU MM 150-450 MEAN PLATELET VOLUME (BEAKER) (test czao=092) 11.1 fL 9.4-12.4 NUCLEATED RED BLOOD CELLS (BEAKER) (test 0 /100 WBC 0-0 wqdm=021) NEUTROPHILS RELATIVE PERCENT (BEAKER) (test 75 % vtjh=096) LYMPHOCYTES RELATIVE PERCENT (BEAKER) (test 9 % paoo=967) MONOCYTES RELATIVE PERCENT (BEAKER) (test 9 % lrga=758) EOSINOPHILS RELATIVE PERCENT (BEAKER) (test 6 % prfw=123) BASOPHILS RELATIVE PERCENT (BEAKER) (test 1 % ovpj=995) NEUTROPHILS ABSOLUTE COUNT (BEAKER) (test 7.61 K/ L 1.78-5.38 apuh=523) LYMPHOCYTES ABSOLUTE COUNT (BEAKER) (test 0.96 K/ L 1.32-3.57 zanf=053) MONOCYTES ABSOLUTE COUNT (BEAKER) (test 0.90 K/ L 0.30-0.82 ztvs=867) EOSINOPHILS ABSOLUTE COUNT (BEAKER) (test 0.60 K/ L 0.04-0.54 nrts=760) BASOPHILS ABSOLUTE COUNT (BEAKER) (test 0.06 K/ L 0.01-0.08 vfiz=261) IMMATURE GRANULOCYTES-RELATIVE PERCENT (BEAKER) 1 % 0-1 (test yidf=7365) POCT-GLUCOSE [id number] 00:03:00 Test Item Value Reference Range Comments POC-GLUCOSE METER (BEAKER) 111 mg/dL 70-110 TESTED AT [address] (test ejyf=5062) [facility] [address] HEPATITIS B SURFACE [id number] 22:19:00 Test Item Value Reference Range Comments HEPATITIS B SURFACE ANTIGEN (2) (BEAKER) (test Nonreactive Nonreactive yzku=1797) HEPATITIS C [id number] 22:19:00 Test Item Value Reference Range Comments HEPATITIS C ANTIBODY (BEAKER) (test fdhm=236) Nonreactive Nonreactive HEPATITIS B SURFACE [id number] 22:16:00 Test Item Value Reference Range Comments HEPATITIS B SURFACE ANTIBODY (BEAKER) (test < mIU/mL <8.0 yrzg=489) ALPHA FETOPROTEIN (AFP), TUMOR [id number] 22:14:00 Test Item Value Reference Range Comments ALPHA-FETOPROTEIN (BEAKER) (test hhdk=6360) 3.9 ng/mL <10.0 HEPATITIS B CORE ANTIBODY, [id number] 22:14:00 Test Item Value Reference Range Comments HEPATITIS B CORE TOTAL ANTIBODY (BEAKER) (test Nonreactive Nonreactive preh=082) HEPATITIS A ANTIBODY, [id number] 22:14:00 Test Item Value Reference Range Comments HEPATITIS A IGG ANTIBODY (BEAKER) (test Nonreactive Nonreactive fbvd=7137) IRON, TIBC, % SAT. (WITHOUT FERRITIN)2017-08-23 22:03:00 Test Item Value Reference Range Comments IRON (BEAKER) (test sqjm=148) 33 ug/dL 40-160 TOTAL IRON BINDING CAPACITY (BEAKER) (test 288 ug/dL 250-450 yihw=590) IRON % SATURATION (2) (BEAKER) (test xsig=4382) 11 % 20-55 [id number] 18:56:00 Test Item Value Reference Range Comments ALPHA-1 ANTITRYPSIN (BEAKER) (test anvj=708) 179.80 mg/dL 90.00-200.00 POCT-GLUCOSE [id number] 17:42:00 Test Item Value Reference Range Comments POC-GLUCOSE METER (BEAKER) 228 mg/dL 70-[address] [facility] [address] [facility] (test gmyd=4114) [facility] [address] CBC W/PLT COUNT & AUTO [id number] 16:47:00 Test Item Value Reference Range Comments WHITE BLOOD CELL COUNT (BEAKER) (test ahio=163) 8.1 K/ L 3.5-10.5 RED BLOOD CELL COUNT (BEAKER) (test ejba=746) 2.67 M/ L 4.63-6.08 HEMOGLOBIN (BEAKER) (test hvtc=113) 7.5 GM/DL 13.7-17.5 HEMATOCRIT (BEAKER) (test wqwi=313) 24.2 % 40.1-51.0 MEAN CORPUSCULAR VOLUME (BEAKER) (test yrkw=123) 90.6 fL 79.0-92.2 MEAN CORPUSCULAR HEMOGLOBIN (BEAKER) (test 28.1 pg 25.7-32.2 yoev=958) MEAN CORPUSCULAR HEMOGLOBIN CONC (BEAKER) (test 31.0 GM/DL 32.3-36.5 ncfk=762) RED CELL DISTRIBUTION WIDTH (BEAKER) (test 16.6 % 11.6-14.4 maxa=682) PLATELET COUNT (BEAKER) (test sckg=721) 72 K/CU MM 150-450 MEAN PLATELET VOLUME (BEAKER) (test itxu=702) 10.9 fL 9.4-12.4 NUCLEATED RED BLOOD CELLS (BEAKER) (test 0 /100 WBC 0-0 uqmu=022) NEUTROPHILS RELATIVE PERCENT (BEAKER) (test 76 % pwyg=401) LYMPHOCYTES RELATIVE PERCENT (BEAKER) (test 10 % anrr=578) MONOCYTES RELATIVE PERCENT (BEAKER) (test 8 % uktp=245) EOSINOPHILS RELATIVE PERCENT (BEAKER) (test 5 % yvgl=138) BASOPHILS RELATIVE PERCENT (BEAKER) (test 0 % bwgi=248) NEUTROPHILS ABSOLUTE COUNT (BEAKER) (test 6.12 K/ L 1.78-5.38 lbvy=734) LYMPHOCYTES ABSOLUTE COUNT (BEAKER) (test 0.79 K/ L 1.32-3.57 dvhd=382) MONOCYTES ABSOLUTE COUNT (BEAKER) (test zpgy=730) 0.63 K/ L 0.30-0.82 EOSINOPHILS ABSOLUTE COUNT (BEAKER) (test 0.43 K/ L 0.04-0.54 lizr=094) BASOPHILS ABSOLUTE COUNT (BEAKER) (test xblg=809) 0.03 K/ L 0.01-0.08 IMMATURE GRANULOCYTES-RELATIVE PERCENT (BEAKER) 1 % 0-1 (test pjsc=7885) POCT-GLUCOSE [id number] 16:44:00 Test Item Value Reference Range Comments POC-GLUCOSE METER (BEAKER) 221 mg/dL 70-[address] [facility] [address] [facility] (test mzsg=6101) [facility] [address] [facility] [id number] 16:06:00 Test Item Value Reference Range Comments CDT TOXIN (test Negative Negative ecwj=[id number]) CDT GDH ANTIGEN (test Positive Negative C. difficile present but toxin ogup=[id number]) not detected. Indicates colonization with non-toxigenic strain or level of toxin below detectable levels. No need for enteric isolation. Treatment is rarely needed (only when strong clinical suspicion for Clostridium difficile infection) Testing performed by [employer] Rapid Cassette Assay. For GDH, published sensitivity of the assay is 98.7% compared to cytotoxicity testing. For Toxin AB, published sensitivity is 87.8% and specificity 99.4% compared to cytotoxicity testing.Verification of kit performance was done by the [facility] Microbiology Lab prior to clinical use.POCT-GLUCOSE [id number] 12:54:00 Test Item Value Reference Range Comments POC-GLUCOSE METER (BEAKER) 122 mg/dL 70-[address] [facility] [address] (test tfzm=8310) [facility] [address] CBC (HEMOGRAM ONLY)2017-08-23 12:35:00 Test Item Value Reference Range Comments WHITE BLOOD CELL COUNT (BEAKER) (test tygp=917) 9.2 K/ L 3.5-10.5 RED BLOOD CELL COUNT (BEAKER) (test rfod=449) 2.88 M/ L 4.63-6.08 HEMOGLOBIN (BEAKER) (test fnkq=536) 8.0 GM/DL 13.7-17.5 HEMATOCRIT (BEAKER) (test owap=021) 25.8 % 40.1-51.0 MEAN CORPUSCULAR VOLUME (BEAKER) (test jfnv=055) 89.6 fL 79.0-92.2 MEAN CORPUSCULAR HEMOGLOBIN (BEAKER) (test 27.8 pg 25.7-32.2 vqop=643) MEAN CORPUSCULAR HEMOGLOBIN CONC (BEAKER) (test 31.0 GM/DL 32.3-36.5 acwg=206) RED CELL DISTRIBUTION WIDTH (BEAKER) (test 16.5 % 11.6-14.4 hxbi=621) PLATELET COUNT (BEAKER) (test atym=693) 80 K/CU MM 150-450 MEAN PLATELET VOLUME (BEAKER) (test doko=362) 11.5 fL 9.4-12.4 NUCLEATED RED BLOOD CELLS (BEAKER) (test 0 /100 WBC 0-0 krzc=477) COMPLEMENT COMPONENT [id number] 07:43:00 Test Item Value Reference Range Comments C4 COMPLEMENT (BEAKER) (test vdei=588) 19 mg/dL 15-57 COMPLEMENT COMPONENT [id number] 07:43:00 Test Item Value Reference Range Comments C3 COMPLEMENT (BEAKER) (test tnfb=922) 83 mg/dL 82-193 [id number] 06:40:00 Test Item Value Reference Range Comments FERRITIN (BEAKER) (test tnfu=521) 39 ng/mL 5-275 TSH/FREE T4 IF [id number] 06:40:00 Test Item Value Reference Range Comments THYROID STIMULATING HORMONE (BEAKER) (test 0.45 uIU/mL 0.35-4.94 lxuj=619) IRON, TIBC, % SAT. (WITHOUT FERRITIN)2017-08-23 06:21:00 Test Item Value Reference Range Comments IRON (BEAKER) (test aegb=913) 27 ug/dL 40-160 TOTAL IRON BINDING CAPACITY (BEAKER) (test 290 ug/dL 250-450 lakm=868) IRON % SATURATION (2) (BEAKER) (test mypr=9803) 9 % 20-55 PROTHROMBIN [id number] 06:09:00 Test Item Value Reference Range Comments PROTIME (BEAKER) (test ptwq=747) 17.8 seconds 11.7-14.7 INR (BEAKER) (test shjp=862) 1.5 <=5.9 RECOMMENDED COUMADIN/WARFARIN INR THERAPY RANGESSTANDARD DOSE: 2.0 - 3.0 Includes: PROPHYLAXIS forvenous thrombosis, systemic embolization; TREATMENT for venous thrombosis and/or pulmonary embolus.HIGH RISK: Target INR is 2.5-3.5 for patients with mechanical heart valves.[id number] 06:09:00 Test Item Value Reference Range Comments FIBRINOGEN LEVEL (BEAKER) (test bpzw=210) 219 mg/dl 225-434 LIPID [id number] 06:03:00 Test Item Value Reference Range Comments TRIGLYCERIDES (BEAKER) (test rlke=831) 130 mg/dL CHOLESTEROL (BEAKER) (test xyvn=752) 155 mg/dL HDL CHOLESTEROL (BEAKER) (test zsvg=175) 17 mg/dL LDL CHOLESTEROL CALCULATED (BEAKER) (test 112 mg/dL xtla=112) Triglyceride Reference Range: Low Risk <150 Borderline 150- 199 High Risk 200-499 Very High Risk >=500Cholesterol Reference Range: Low Risk <200 Borderline 200-239 High Risk > 240HDL Cholesterol Reference Range: Low Risk >=60 High Risk <40LDL Cholesterol Reference Range: Optimal <100 Near Optimal 100-129 Borderline 130-159 High 160-189 Very High >=190COMPREHENSIVE METABOLIC [id number] 06:03:00 Test Item Value Reference Range Comments TOTAL PROTEIN (BEAKER) 6.1 gm/dL 6.0-8.3 (test jbnt=751) ALBUMIN (BEAKER) (test 2.7 g/dL 3.5-5.0 xedv=7450) ALKALINE PHOSPHATASE 135 U/L 40-150 (BEAKER) (test inbc=227) BILIRUBIN TOTAL (BEAKER) 2.6 mg/dL 0.2-1.2 (test crht=297) SODIUM (BEAKER) (test 132 meq/L 136-145 mitp=525) POTASSIUM (BEAKER) (test 3.8 meq/L 3.5-5.1 ptbu=836) CHLORIDE (BEAKER) (test 106 meq/L 98-107 lbpa=661) CO2 (BEAKER) (test 17 meq/L 22-29 zisk=289) BLOOD UREA NITROGEN 36 mg/dL 7-21 (BEAKER) (test vwak=642) CREATININE (BEAKER) (test 1.82 mg/dL 0.57-1.25 wgkl=461) GLUCOSE RANDOM (BEAKER) 115 mg/dL 70-105 (test zydn=213) CALCIUM (BEAKER) (test 8.1 mg/dL 8.4-10.2 kmnp=749) AST (SGOT) (BEAKER) (test 88 U/L 5-34 xwgc=697) ALT (SGPT) (BEAKER) (test 37 U/L 6-55 dxkc=392) EGFR (BEAKER) (test 40 mL/min/1.73 sq m ESTIMATED GFR IS NOT oekz=6669) ACCURATE CREATININE CLEARANCE IN PREDICTING GLOMERULAR FILTRATION RATE. ESTIMATED GFR IS NOT APPLICABLE FOR DIALYSIS PATIENTS. U/S, ABDOMINAL, WITH [id number] 05:45:00With doppler Reason for exam:-&gt ;decompensated cirrhosis Should this be performed at the bedside?->YesFINAL REPORT U/S, ABDOMINAL, WITH DOPPLER INDICATION: decompensated cirrhosisCOMPARISON: None TECHNIQUE: Real-time chappell-scale transabdominal and color and spectral Doppler ultrasound. FINDINGS:Visualized portion of the pancreas is normal.Cirrhosis.Moderate volume ascites.CBD isat the upper limits of normal at 7 mm.No cholelithiasis.Portal vein measures 1.4 cm.Visualized portions of the kidneys are unremarkable without obvious hydronephrosis.Splenomegaly 16 cm.Visualized portion of the aorta is unremarkable. Color and Spectral imaging:Portal veins demonstrate normal directional flow and waveform.Hepatic artery demonstrate normal directional flow and waveform.Hepatic veins and IVC appear patent and unremarkable.Splenic vein demonstrates normal directional flow and waveform.IMPRESSION: Cirrhosis and portal hypertension.CBD at the upper limits of normal at 7 mm.Normal Doppler portion of the exam. Signed: Rama Chu MDReport Verified Date/Time : 08/23/2017 05:45:59 Reading Location: [address] Transitional Reading Room CBC W/ PLT COUNT & AUTO [id number] 05:36:00 Test Item Value Reference Range Comments WHITE BLOOD CELL COUNT (BEAKER) (test cdsd=274) 8.1 K/ L 3.5-10.5 RED BLOOD CELL COUNT (BEAKER) (test givc=272) 2.62 M/ L 4.63-6.08 HEMOGLOBIN (BEAKER) (test qqhx=938) 7.1 GM/DL 13.7-17.5 HEMATOCRIT (BEAKER) (test fsko=158) 23.5 % 40.1-51.0 MEAN CORPUSCULAR VOLUME (BEAKER) (test rafz=096) 89.7 fL 79.0-92.2 MEAN CORPUSCULAR HEMOGLOBIN (BEAKER) (test 27.1 pg 25.7-32.2 xpad=285) MEAN CORPUSCULAR HEMOGLOBIN CONC (BEAKER) (test 30.2 GM/DL 32.3-36.5 rale=723) RED CELL DISTRIBUTION WIDTH (BEAKER) (test 17.1 % 11.6-14.4 fuaj=913) PLATELET COUNT (BEAKER) (test ankz=712) 82 K/CU MM 150-450 MEAN PLATELET VOLUME (BEAKER) (test dcva=115) 10.6 fL 9.4-12.4 NUCLEATED RED BLOOD CELLS (BEAKER) (test 0 /100 WBC 0-0 wfqs=216) NEUTROPHILS RELATIVE PERCENT (BEAKER) (test 72 % swmi=317) LYMPHOCYTES RELATIVE PERCENT (BEAKER) (test 13 % whnu=591) MONOCYTES RELATIVE PERCENT (BEAKER) (test 9 % llim=641) EOSINOPHILS RELATIVE PERCENT (BEAKER) (test 5 % abjk=687) BASOPHILS RELATIVE PERCENT (BEAKER) (test 1 % tlgn=623) NEUTROPHILS ABSOLUTE COUNT (BEAKER) (test 5.79 K/ L 1.78-5.38 svpz=759) LYMPHOCYTES ABSOLUTE COUNT (BEAKER) (test 1.04 K/ L 1.32-3.57 lpfs=168) MONOCYTES ABSOLUTE COUNT (BEAKER) (test dwre=174) 0.74 K/ L 0.30-0.82 EOSINOPHILS ABSOLUTE COUNT (BEAKER) (test 0.42 K/ L 0.04-0.54 lxsk=687) BASOPHILS ABSOLUTE COUNT (BEAKER) (test wpaz=404) 0.06 K/ L 0.01-0.08 IMMATURE GRANULOCYTES-RELATIVE PERCENT (BEAKER) 1 % 0-1 (test osxa=3461) POCT-GLUCOSE [id number] 05:20:00 Test Item Value Reference Range Comments POC-GLUCOSE METER (BEAKER) 148 mg/dL 70-110 TESTED AT [address] (test gqjo=5567) [facility] [address] URINALYSIS W/ [id number] 02:49:00 Test Item Value Reference Range Comments COLOR (BEAKER) (test ibxl=162) Yellow CLARITY (BEAKER) (test hezs=011) Hazy SPECIFIC GRAVITY UA (BEAKER) (test 1.010 1.001-1.035 gznv=985) PH UA (BEAKER) (test kyxp=786) 5.0 5.0-8.0 PROTEIN UA (BEAKER) (test vtpu=900) 30 mg/dL Negative GLUCOSE UA (BEAKER) (test fpqq=587) Negative Negative KETONES UA (BEAKER) (test owjp=157) Negative Negative BILIRUBIN UA (BEAKER) (test kjjs=401) Negative Negative BLOOD UA (BEAKER) (test obro=162) Large Negative NITRITE UA (BEAKER) (test yjbx=079) Negative Negative LEUKOCYTE ESTERASE UA (BEAKER) (test Small Negative lhdm=359) UROBILINOGEN UA (BEAKER) (test ooeg=997) 0.2 mg/dL 0.2-1.0 RBC UA (BEAKER) (test euis=186) 23 /HPF WBC UA (BEAKER) (test tecq=310) 4 /HPF BACTERIA (BEAKER) (test jtqu=475) Rare MUCUS (BEAKER) (test szrb=6610) Rare SQUAMOUS EPITHELIAL (BEAKER) (test < /HPF cico=058) HYALINE CASTS (BEAKER) (test vfej=160) 7 /LPF WBC CASTS (BEAKER) (test dcdk=1754) 6 /LPF GRANULAR CASTS (BEAKER) (test xrns=024) 22 /LPF SOURCE(BEAKER) (test vdlx=1606) Urine, Clean Catch CREATININE, RANDOM [id number] 02:30:00 Test Item Value Reference Range Comments CREATININE URINE (BEAKER) (test gcbu=861) 152.0 mg/dL Reference Range: No NormalsPROTEIN, RANDOM [id number] 02:30:00 Test Item Value Reference Range Comments PROTEIN, URINE (BEAKER) (test fbwd=7244) 27 mg/dL 0-14 SODIUM, RANDOM [id number] 02:30:00 Test Item Value Reference Range Comments SODIUM URINE (BEAKER) (test vdxe=860) 41 meq/L Reference Range: No NormalsUREA NITROGEN, RANDOM [id number] 02:30:00 Test Item Value Reference Range Comments UREA NITROGEN URINE (BEAKER) (test fmic=465) 565 mg/dL Reference Range: No [id number] 00:59:00 Test Item Value Reference Range Comments PHOSPHORUS (BEAKER) (test dqyh=513) 3.8 mg/dL 2.3-4.7 [id number] 00:59:00 Test Item Value Reference Range Comments MAGNESIUM (BEAKER) (test nsjp=258) 1.4 mg/dL 1.6-2.6 POCT-GLUCOSE [id number] 23:30:00 Test Item Value Reference Range Comments POC-GLUCOSE METER (BEAKER) 137 mg/dL 70-[address] [facility] [address] [facility] (test lrep=6081) [facility] [address] COMPREHENSIVE METABOLIC [id number] 22:46:00 Test Item Value Reference Range Comments TOTAL PROTEIN (BEAKER) 6.6 gm/dL 6.0-8.3 (test fdaw=766) ALBUMIN (BEAKER) (test 3.0 g/dL 3.5-5.0 ngeh=6211) ALKALINE PHOSPHATASE 156 U/L 40-150 (BEAKER) (test bgzq=160) BILIRUBIN TOTAL (BEAKER) 2.8 mg/dL 0.2-1.2 (test qoww=631) SODIUM (BEAKER) (test 133 meq/L 136-145 jclo=413) POTASSIUM (BEAKER) (test 3.9 meq/L 3.5-5.1 esaz=225) CHLORIDE (BEAKER) (test 106 meq/L 98-107 lgey=112) CO2 (BEAKER) (test 16 meq/L 22-29 vbav=507) BLOOD UREA NITROGEN 35 mg/dL 7-21 (BEAKER) (test wefz=149) CREATININE (BEAKER) (test 1.73 mg/dL 0.57-1.25 iaxx=870) GLUCOSE RANDOM (BEAKER) 152 mg/dL 70-105 (test ryjf=238) CALCIUM (BEAKER) (test 8.2 mg/dL 8.4-10.2 plmy=461) AST (SGOT) (BEAKER) (test 73 U/L 5-34 lkcx=037) ALT (SGPT) (BEAKER) (test 34 U/L 6-55 rxec=462) EGFR (BEAKER) (test 42 mL/min/1.73 sq m ESTIMATED GFR IS NOT mknn=8940) ACCURATE CREATININE CLEARANCE IN PREDICTING GLOMERULAR FILTRATION RATE. ESTIMATED GFR IS NOT APPLICABLE FOR DIALYSIS PATIENTS. Specimen slightly ictericLACTIC ACID, VENOUS, WHOLE [id number] 22:43:00 Test Item Value Reference Range Comments LACTATE BLOOD VENOUS (2) (BEAKER) (test 1.6 mmol/L 0.5-2.2 jqmt=8292) Effective 06/13/2015: Units/Reference Range ChangeNew: 0.5-2.2 mmol/L Previous: 5 -20 mg/dLSpecimen slightly ictericPROTHROMBIN [id number] 22:30:00 Test Item Value Reference Range Comments PROTIME (BEAKER) (test royl=902) 17.6 seconds 11.7-14.7 INR (BEAKER) (test hrfn=392) 1.5 <=5.9 RECOMMENDED COUMADIN/WARFARIN INR THERAPY RANGESSTANDARD DOSE: 2.0 - 3.0 Includes: PROPHYLAXIS forvenous thrombosis, systemic embolization; TREATMENT for venous thrombosis and/or pulmonary embolus.HIGH RISK: Target INR is 2.5-3.5 for patients with mechanical heart valves.[id number] 22:30:00 Test Item Value Reference Range Comments FIBRINOGEN LEVEL (BEAKER) (test khry=765) 233 mg/dl 225-434 CBC W/PLT COUNT & AUTO [id number] 22:21:00 Test Item Value Reference Range Comments WHITE BLOOD CELL COUNT (BEAKER) (test puvx=924) 10.9 K/ L 3.5-10.5 RED BLOOD CELL COUNT (BEAKER) (test tuvp=833) 2.27 M/ L 4.63-6.08 HEMOGLOBIN (BEAKER) (test hxem=867) 6.2 GM/DL 13.7-17.5 HEMATOCRIT (BEAKER) (test bvia=097) 20.6 % 40.1-51.0 MEAN CORPUSCULAR VOLUME (BEAKER) (test byxg=057) 90.7 fL 79.0-92.2 MEAN CORPUSCULAR HEMOGLOBIN (BEAKER) (test 27.3 pg 25.7-32.2 cmcu=269) MEAN CORPUSCULAR HEMOGLOBIN CONC (BEAKER) (test 30.1 GM/DL 32.3-36.5 spes=661) RED CELL DISTRIBUTION WIDTH (BEAKER) (test 17.5 % 11.6-14.4 eljr=184) PLATELET COUNT (BEAKER) (test mblv=908) 99 K/CU MM 150-450 MEAN PLATELET VOLUME (BEAKER) (test nbfx=484) 10.8 fL 9.4-12.4 NUCLEATED RED BLOOD CELLS (BEAKER) (test 0 /100 WBC 0-0 gatr=737) NEUTROPHILS RELATIVE PERCENT (BEAKER) (test 77 % yrxf=480) LYMPHOCYTES RELATIVE PERCENT (BEAKER) (test 11 % swxo=127) MONOCYTES RELATIVE PERCENT (BEAKER) (test 8 % qdqx=324) EOSINOPHILS RELATIVE PERCENT (BEAKER) (test 4 % yfue=016) BASOPHILS RELATIVE PERCENT (BEAKER) (test 0 % udrg=616) NEUTROPHILS ABSOLUTE COUNT (BEAKER) (test 8.35 K/ L 1.78-5.38 mklg=764) LYMPHOCYTES ABSOLUTE COUNT (BEAKER) (test 1.16 K/ L 1.32-3.57 bdcd=127) MONOCYTES ABSOLUTE COUNT (BEAKER) (test yuku=915) 0.90 K/ L 0.30-0.82 EOSINOPHILS ABSOLUTE COUNT (BEAKER) (test 0.42 K/ L 0.04-0.54 kovp=460) BASOPHILS ABSOLUTE COUNT (BEAKER) (test kynk=764) 0.03 K/ L 0.01-0.08 IMMATURE GRANULOCYTES-RELATIVE PERCENT (BEAKER) 1 % 0-1 (test vzkk=4479)
--- OUTSIDE RECORDS SUMMARY | 2019-01-16 09:19 | XMS REPORT | Summary of Care ---
:1970 Author Organization [facility] Address [address] [place] [address] Care Team Providers Name Role Phone Raj Jerez MD Primary Care Provider Reason for Visit Reason Comments Infusion Therapy (Routine) Status Reason Specialty Diagnoses / Referred By Referred To Procedures Contact Contact Closed Infusion Therapy Diagnoses Severe anemia Hepatic cirrhosis, unspecified hepatic cirrhosis type, unspecified whether ascites present Dinah Vásquez Procedures CONSULT/REFERRAL AMB INFUSION THERAPY Preferred location: Marily ([facility] 3rd Floor) MD Jelly [address] [facility] [id number] [place] [address] Encounter Details Date Type Department Care Team Description 04/05/2018 Nurse Visit [facility] Infusion Carlitos Vásquez [address] [facility] [id number] [place] [address] [phone] Chronic fatigue (Primary Dx); Therapy- [place] [id number], [facility] Adult Infusion Nurse Iron deficiency anemia, unspecified iron deficiency anemia type; [facility] Symptomatic anemia [address] [facility], [address] [place] [address] Allergies No Known Allergiesdocumented as of this encounter (statuses as of 09/21/2018) Medications Medication Sig Dispensed Refills Start Date [...] daily. sildenafil 20 mg Take 1 tablet 30 tablet 0 02/20/2017 04/23/2018 Discontinued tablet by mouth daily. pantoprazole 40 mg Take 1 tablet 90 tablet 3 02/23/2017 04/23/2018 Discontinued EC tablet by mouth 2 (two) times daily. spironolactone 100 Take 1.5 90 tablet 3 12/11/2017 09/14/2018 Discontinued mg tablet tablets by mouth 2 (two) times daily. furosemide (LASIX) Take 1.5 90 tablet 3 12/11/2017 05/17/2018 Discontinued 40 mg tablet tablets by mouth every morning and evening. documented as of this encounter (statuses as of 09/21/2018) Active Problems Problem Noted Date Fatigue 03/20/2017 Melena 03/20/2017 Iron deficiency anemia, unspecified iron deficiency anemia type 02/24/2017 Overview: Added automatically from request for surgery [id number] Symptomatic anemia 02/21/2017 Cryptogenic cirrhosis of liver 02/20/2017 IgA nephropathy associated with liver disease 02/20/2017 Obesity (BMI 30-39.9) 08/04/2016 CKD (chronic kidney disease) 08/04/2016 Ascites 07/10/2016 Acute pancreatitis 06/26/2016 Nontraumatic splenic rupture 06/19/2016 documented as of this encounter (statuses as of 09/21/2018) Resolved Problems Problem Noted Date Resolved Date Elevated lipase 08/04/2016 02/20/2017 Abdominal compartment syndrome 06/26/2016 08/06/2016 ERIC (acute kidney injury) 06/19/2016 02/20/2017 Anemia 06/19/2016 02/20/2017 documented as of this encounter (statuses as of 09/21/2018) Immunizations Name Administration Dates Next Due Heamophilus [...] Sign Reading Time Taken Comments Blood Pressure 130/70 04/05/2018 2:47 PM NAILING MACHINE OPERATOR [employer]OMATIC Pulse 103 04/05/2018 2:47 PM NAILING MACHINE OPERATOR AUTOMATIC Temperature 37.3 C (99.2 F) 04/05/2018 2:47 PM NAILING MACHINE OPERATOR AUTOMATIC Respiratory Rate 18 04/05/2018 2:47 PM NAILING MACHINE OPERATOR AUTOMATIC Oxygen Saturation 99% 04/05/2018 2:47 PM NAILING MACHINE OPERATOR AUTOMATIC Inhaled Oxygen Concentration - - Weight 91.3 kg (201 lb 4.5 oz) 04/05/2018 9:02 AM NAILING MACHINE OPERATOR AUTOMATIC Height - - Body Mass Index 27.3 04/02/2018 3:04 PM NAILING MACHINE OPERATOR AUTOMATIC documented in this encounter Progress Notes Amber Love RN - 04/05/2018 8:30 AM CST Blood Product Administration Note ALLERGIES: Patient has no known allergies. Diagnosis (Primary)Symptomatic anemia Diagnosis (Secondary)Chronic fatigue Lab Data WBC (10*3/L) Date Value 04/02/2018 5.69 HGB (g/dL) Date Value 04/02/2018 4.5 (LL) HCT (%) Date Value 04/02/2018 17.7 (L) BUN (mg/dL) Date Value 04/02/2018 32 (H) PLT (10*3/L) Date Value 04/02/2018 132 (L) No results found for: CREATCL GRAN MAT x10^3(ANC) (10*3/uL) Date Value 04/02/2018 3.28 Transfusions: PRBCs Patient Assessment Pain: no , Anemia: yes , Fatigue: yes and Shortness of breath: no IV Therapy Type:Peripheral Site Location:right antecubital Blood return present:yes I.V. Flush:0.9 NS 10cc x 1 vial(s) I.V. Patent:yes I.V. Fluids:Normal Saline During administration:burning: no, redness: no and swelling: no Blood return checked during I.V. push administration:N\A HYDRATION/THERAPEUTIC DRUG DOSE ROUTE START TIME STOP TIME PRBC Unit #1 IV 1141 1300 PRBC Unit #2 IV 1313 Blood product administration 1: unit # [id number]; unit verified with Elaine Randall, BE, patient identified by namd and ,first unit packed red blood cells started on Portillo pump, no reactions observed, vital signs within normal limits and no sob, back pain, chest pain, wheezing, itching or hives Blood product administration 2: unit # [id number]; unit verified with Melissa Gonzalez RN, patient identified by name and , second unit packed red blood cells started on Portillo pump, no reactions observed, vital signs within normal limits and no sob , back pain, chest pain, wheezing, itching or hives documented in this encounter Plan of Treatment Date Type Specialty Care Team Description 11/18/2018 Office Visit Nephrology Santy Hyman [address] [place] [address] [id number] Name Type Priority Associated Diagnoses Order Schedule Urinalysis LAB Routine Chronic fatigue 1 Occurrences starting Iron deficiency anemia, 04/05/2018 until 10/02/2018 unspecified iron deficiency anemia type Symptomatic anemia Health Maintenance Due Date Last Done Comments COLONOSCOPY 01/03/2018 Zoster Recombinant Vaccine 01/03/2018 (SHINGRIX) (1 of 2) INFLUENZA VACCINE 10/10/2018 12/25/2017, 02/20/2017, 02/20/2017 DTaP,Tdap,and Td Vaccines (2 12/26/2027 12/25/2017 - Td) PNEUMOCOCCAL 0-64 YEARS Aged Out 07/15/2016 No longer eligible based COMBINED SERIES on patient's age to complete this topic documented as of this encounter Procedures Procedure Name Priority Date/Time Associated Comments Diagnosis TRANSFUSE PACKED RBC Routine 04/05/2018 2:48 PM NAILING MACHINE OPERATOR AUTOMATIC PREPARE PACKED RBC Routine 04/05/2018 1:07 Results for this PM NAILING MACHINE OPERATOR AUTOMATIC procedure are in the results section. TRANSFUSION MEDICINE Routine 04/05/2018 8:56 Chronic fatigue Results for this DMT INTERP AM NAILING MACHINE OPERATOR AUTOMATIC Symptomatic anemia procedure are in the results section. documented in this encounter Results Prepare Packed RBC (in units), 1 Units (04/05/2018 1:07 PM NAILING MACHINE OPERATOR AUTOMATIC) Unit Blood Type B Pos LAB ISBT Blood Type Code 7300 LAB Unit Number [id number] LAB Blood Expiration Date & [id number] LAB Time Status Information Issued LAB Product Identification Red Blood Cells LAB Product Code [id number] LAB Comment: Performed at [facility] Laboratory Services - [facility] Blood Bank [address] [place] [address] Toll Free: [phone] CLIA No. [id number] Cross Match Result Compatible LAB Specimen Performing Organization Address City/State/Zipcode Phone Number [facility] LAB TRANSFUSION MEDICINE DMT INTERP (04/05/2018 8:56 AM NAILING MACHINE OPERATOR AUTOMATIC) Transfusion Medicine DMT See Narrative Interp Specimen Blood Narrative Performed At Transfusion Medicine Faculty Note for Antibody Identification: I have reviewed the patient's antibody identification workup and participated in the interpretation, assessment, and plan. I agree with the note as written by Dr. Parker. Austin Raymond MD Truant Officer, Transfusion Medicine Transfusion Medicine Resident: Immunohematology Interpretation Patient Name: Landon Peguero Date of Service: 04/05/18 CPT: 92668 ICD-10: Z01.84 Patient History: Briefly, Landon Peguero is a 48 year old male came to the infusion lab for RBC units transfusion. He has history of symptomatic anemia and chronic fatigue. The patient's transfusion history outside of [facility] is unknown. He has a history of an anti-Jka antibody, first detected at [facility] on 02/21/17. Transfusion History per [facility]: RBC unit transfusions on 02/21/17 and 02/22/17 ABO & Rh: B Positive Previous Antibodies Identified: Anti-Jka antibody Date: 02/21/17 Anti-Jka antibody Date: 03/20/17 Antibodies Identified, Current Sample: Anti-Jka antibody Date: 04/05/18 RBC Phenotype Negative For: Jka Additional testing and/or information: Jka antigen is negative. IAT is negative. Assessment: Antibody Currently Detected: Anti-Jka antibody Historical Antibody, Not Currently Detected: None Clinical Significance: Anti-Jka is a clinically significant antibody in the [employer] blood group system. Anti-Jka is a common cause of immediate and delayed transfusion reactions. Prevalence of Antigen(s)/pRBCs: - Approximately 77 % of white population is positive for Jka antigen. Plan: - The patient will receive Jka antigen negative packed red blood cells should transfusion be clinically indicated. - Please allow an additional 4 hours to find compatible blood for this patient. -For assistance, please contact the Transfusion Medicine service. ELVIRA Baltazar , PGY-1 Blood Bank/Transfusion Medicine Pager# [phone] documented in this encounter Visit Diagnoses Diagnosis Chronic fatigue - Primary Other malaise and fatigue Iron deficiency anemia, unspecified iron deficiency anemia type Symptomatic anemia documented in this encounter Administered Medications Medication Order MAR Action Action Date Dose Rate Site NaCl 0.9% (NS) IV Line Priming Given 04/05/2018 9:30 AM NAILING MACHINE OPERATOR AUTOMATIC 250 mL and Flushing Fluid Only 250 mL 250 mL, IV Infusion, ONCE, 1 dose, 04/05/18 at 1030, 250 mL, Transfusion documented in this encounter documented as of this encounter
[2019-01-16] MEDS ORDERED: NA CHLORIDE 0.9% 500 ML ONE (09:54)
[2019-01-16 10:16] LABS: Basophils % 0.4 % (0-1.3); Hematocrit 16.6 % (39.6-49.0); Lymphocytes % 7.6 % (15.3-44.8); MPV 9.3 fL (7.6-11.3)
[2019-01-16 10:20] LABS: Protime INR 1.38
[2019-01-16] MEDS ORDERED: NA CHLORIDE 0.9% 250 ML ONE (10:28)
[2019-01-16] MEDS ORDERED: HYDROCORTISONE SUC 100 MG INJ ONE (10:30)
[2019-01-16] MEDS ORDERED: DIPHENHYDRAMINE 50 MG/ML VIAL ONE (10:31)
[2019-01-16] MEDS ORDERED: ACETAMINOPHEN 325 MG TABLET ONE (10:31)
[2019-01-16] MEDS ORDERED: WATER FOR INJ,STERILE 10 ML ONE (10:31)
[2019-01-16 10:41] LABS: ALT/SGPT 19 U/L (12-78); AST/SGOT 53 U/L (15-37); Albumin 2.6 g/dL (3.4-5.0); Alkaline Phosphatase 144 U/L (45-117); BUN Blood Urea Nitrogen 32 mg/dL (7-18); Bicarbonate 26 mmol/L (21-32); Bilirubin Direct 2.3 mg/dL (0-0.2); Bilirubin Total 3.4 mg/dL (0.2-1.0); Glucose Level 127 mg/dL (74-106); NT PRO-BNP 472 pg/mL (<125); Potassium 3.8 mmol/L (3.5-5.1); Protein, Total 6.7 g/dL (6.4-8.2); Sodium Level 133 mmol/L (136-145); Troponin (Emerg Dept Use Only) < 0.02 ng/mL (0.0-0.045)
[2019-01-16 10:43] LABS: Anisocytosis 1+; Blood Morphology Comment NOTED (NOT SEEN); Hypochromasia 2+; Magnesium 1.4 mg/dL (1.8-2.4); Platelet Estimate ADEQ
[2019-01-16] MEDS ORDERED: Magnesium Sulfate 2gm IVPB 2 G/50 ML BAG IV ONE (10:57)
--- NOTE | 2019-01-16 11:04 | RAD REPORT ---
EXAM DESCRIPTION: RAD - Chest Single View - 01/16/2019 10:23 am CLINICAL HISTORY: Fall, left-sided chest pain COMPARISON: August 2017 TECHNIQUE: AP portable chest image was obtained 1020 hours . FINDINGS: Lung volumes are low. No pulmonary contusion identified. No acute lung parenchymal process seen. Heart and vasculature are normal. No measurable pleural effusion and no pneumothorax. No acute bony abnormality seen. No acute aortic findings suspected. IMPRESSION: Shallow inspiration portable film without acute cardiopulmonary finding.
--- NOTE | 2019-01-16 11:05 | RAD REPORT ---
EXAM DESCRIPTION: RAD - Knee Left 3 View - 01/16/2019 10:26 am CLINICAL HISTORY: Fall, left-sided knee pain COMPARISON: None. FINDINGS: No fracture, dislocation or periosteal reaction.No joint effusion seen. No joint space hussein rowing. No soft tissue abnormality. IMPRESSION: Negative left knee. Clinical concerns for internal derangement or occult bony injury could be further assessed with MR im aging.
--- NOTE | 2019-01-16 11:05 | RAD REPORT ---
EXAM DESCRIPTION: Shoulder Right 2 View - 01/16/2019 10:23 am CLINICAL HISTORY: Fall, right shoulder pain COMPARISON: None. TECHNIQUE: Internal and external rotation views of the right shoulder were obtained. FINDINGS: There is no fracture or dislocation. Minimal AC joint degenerative change without spurrin g. There is degenerative change along the undersurface of the acromion. Lateral downward tilting of t he acromion can contribute to shoulder impingement. Acromial humeral joint space is normal. No abnorm al soft tissue calcifications. No acute or suspicious findings. IMPRESSION: Negative two-view right shoulder examination for acute finding.
--- NOTE | 2019-01-16 11:16 | RAD REPORT ---
EXAM DESCRIPTION: CT - Chest Abd Pelvis Wo Con - 01/16/2019 10:58 am CLINICAL HISTORY: abdominal pain, syncope, fall with trauma to the left side of the body COMPARISON: CT study August 2017 TECHNIQUE: During dynamic enhancement using 100 milliliters nonionic IV contrast, axial 5 millimeter thick images of the chest, abdomen and pelvis were obtained. Biphasic technique was utilized through the abdomen. Oral contrast was administered. All CT scans are performed using dose optimization technique as appropriate and may include automated exposure control or mA/KV adjustment according to patient size. FINDINGS: No pulmonary contusion or acute lung parenchymal process seen. No pneumothorax is present. There is no left-sided pleural fluid. Trace amount of right pleural effusion present. No chest wall mass or abnormal axillary lymphadenopathy seen. Mediastinal and hilar regions show no mass or lympha denopathy. No significant cardiac finding. No displaced or nondisplaced rib fractures identifiable. The liver is abnormal. There is a nodular contour to the capsule and heterogeneity of the parenchyma. Cirrhosis or other diffuse hepatic parenchymal disease is suspected. Pattern is not grossly differen t from August 2017. Assessment is limited in the absence of contrast. No splenomegaly. No focal splenic defect confirmed. No pancreatic or peripancreatic abnormality. Gallbladder is contracted. No biliary tree dilatation. T here are 2 hyperdense foci near the cystic duct suspected to be stones. No hydronephrosis or acute renal parenchymal process. Isodense masses and pyelonephritis are not excl uded. Small right adrenal mass has not changed. Left adrenal gland is unremarkable. Urinary bladder i s fully contracted limiting assessment. Prostate gland and seminal vesicles within normal range. New of the stomach accentuated by the absence of intraluminal content. No dilated large or small chhaya wel. An acute bowel process is not seen. No free air or pneumatosis. Moderate ascites is present. There is hyperdensity of the intraperitoneal fluid collecting in the dependent portion of the pelvis. This is suspected to be blood given the den sity. However, there is no other abnormality to indicate a source. Assessment is limited in the absen ce of contrast. A 3.5 cm umbilical hernia is present containing ascites. No bowel involvement. Prominent L5-S1 disc and bone degenerative changes present. IMPRESSION: Hyperdense material is present collecting in the dependent portion of the pelvis in this patient with moderate amount of ascites. Hyperdense material is suspected to be blood collecting in the dependent portion of the pelvis. Sourc e for the blood - estimated at 100 mL -not evident on this examination. Active bleeding cannot be ass essed. Cirrhosis or diffuse hepatic parenchymal disease. No pneumothorax or acute CT chest finding. Trace pleural fluid noted on the right. No gross evidence for injury to the solid abdominal viscera. Overall examination is limited in the absence of IV contrast.
--- NOTE | 2019-01-16 13:55 | ER ---
Nurse's Notes [facility] Name: Landon Peguero Age: 49 yrs Sex: Male : 1970 Arrival Date: 01/16/2019 Time: 09:18 Bed 8 Private MD: Dr Vish Diagnosis: Anemia, unspecified;Ascites;Hemoperitoneum;Fall on same level, unspecified;Syncope and collapse Presentation: 01/16 09:30 Presenting complaint: Patient states: Fall last night reports lost balance and hit the sg left side of body, reports feeling sore, denies hitting head or any injury from fall. Reports this morning having pallor of the skin, and reports having abd pain in all four quadrants as well has having bilateral flank pain, denies blood in stool or urine at this time. Transition of care: patient was not received from another setting of care. Onset of symptoms was January 16, 2019. Risk Assessment: Do you want to hurt yourself or someone else? Patient reports no desire to harm self or others. Initial Sepsis Screen: Does the patient meet any 2 criteria? No. Patient's initial sepsis screen is negative. Does the patient have a suspected source of infection? Yes: Acute abdominal pain. Care prior to arrival: None. 09:30 Method Of Arrival: Wheelchair 09:30 Acuity: SARAH 3 09:35 Note [facility] Providers. sg Historical: - Allergies: 09:30 No Known Allergies; sg - PMHx: 09:30 Esophageal tear; GERD; ruptured spleen; sg - PSHx: 09:30 Vasectomy; Esophagus repair; sg - Immunization history:: Adult Immunizations up to date. - Social history:: Smoking status: Patient/guardian denies using tobacco. - Ebola Screening: : Patient negative for fever greater than or equal to 101.5 degrees Fahrenheit, and additional compatible Ebola Virus Disease symptoms Patient denies exposure to infectious person Patient denies travel to an Ebola-affected area in the 21 days before illness onset No symptoms or risks identified at this time. Screenin:00 Abuse screen: Denies threats or abuse. Denies injuries from another. Nutritional ca1 screening: No deficits noted. Tuberculosis screening: No symptoms or risk factors identified. Fall Risk Fall in past 12 months (25 points). IV access (20 points). Total Randall Fall Scale indicates Low Risk Score (25-44 pts). Fall prevention measures have been instituted. Side Rails Up X 2 Family Present and informed to notify staff if they need to leave bedside. Assessment: 10:00 General: Appears in no apparent distress. comfortable, Behavior is calm, cooperative, ca1 appropriate for age. Pain: Complains of pain in abdomen Pain currently is 7 out of 10 on a pain scale. Quality of pain is described as crampy, Pain began 1 day ago. Is intermittent. Neuro: Level of Consciousness is awake, alert, obeys commands, Oriented to person, place, time, situation, Appropriate for age. Cardiovascular: Heart tones S1 S2 present Capillary refill < 3 seconds Patient's skin is warm and dry. Cardiovascular: Rhythm is sinus rhythm. Respiratory: Airway is patent Respiratory effort is even, unlabored, Respiratory pattern is regular, symmetrical. GI: Abdomen is flat, non-distended, Bowel sounds present X 4 quads. Abd is soft X 4 quads Abdomen is tender to palpation X 4 quads. Reports vomiting, once yesterday. : No deficits noted. No signs and/or symptoms were reported regarding the genitourinary system. EENT: No deficits noted. No signs and/or symptoms were reported regarding the EENT system. Derm: Skin is intact, is healthy with good turgor, Skin is pink, warm \T\ dry. Musculoskeletal: Circulation, motion, and sensation intact. Capillary refill < 3 seconds, Range of motion: intact in all extremities. 10:48 Reassessment: Patient appears in no apparent distress at this time. Patient is alert, ca1 oriented x 3, equal unlabored respirations, skin warm/dry/pink. BT consent signed. 10:54 Reassessment: Pt transported to CT. ca1 10:56 Reassessment: Outside lab called to notify that pt positive with antibodies. They will ca1 have to run tests and blood for BT will be coming from [place]. Notified provider. 11:59 Reassessment: Patient appears in no apparent distress at this time. Patient is alert, ca1 oriented x 3, equal unlabored respirations, skin warm/dry/pink. 11:59 Reassessment: Dr. Bueno at bedside. ca1 12:55 Reassessment: Patient appears in no apparent distress at this time. Patient is alert, ca1 oriented x 3, equal unlabored respirations, skin warm/dry/pink. Dr. Maharaj at bedside. 13:37 Reassessment: TRANSFER ON HOLD 2/2 PT CONTEMPLATING AMA. NOTIFIED. bp 14:03 Reassessment: PT INSISTING ON LEAVING AMA. COUNSELED BY STAFF AND PROVIDER TO STAY, BUT bp REFUSED. PT ADVISED TO SEEK MEDICAL TREATMENT IF S/S MAINTAIN OR WORSEN. PT AO4, AMBULATORY WITH STEADY GAIT, VS STABLE. Vital Signs: 09:33 BP 98 / 54; Pulse 90; Resp 16 S; Temp 97.6; Pulse Ox 96% on R/A; sg 10:11 BP 106 / 56; Pulse 82; Resp 23 S; Pulse Ox 99% on R/A; ca1 10:48 BP 108 / 60; Pulse 82; Resp 18 S; Pulse Ox 100% on R/A; ca1 11:59 BP 101 / 51; Pulse 88; Resp 16 S; Pulse Ox 100% on R/A; ca1 12:55 BP 117 / 64; Pulse 97; Resp 23 S; Pulse Ox 100% on R/A; ca1 13:38 BP 121 / 59; Pulse 97; Resp 22; Pulse Ox 100% ; bp ED Course: 09:18 Patient arrived in ED. mr 09:30 Arm band placed on. sg 09:33 Triage completed. sg 09:35 [facility] Soler [facility]. pm1 09:35 Kash Baca MD is Attending Physician. pm1 09:35 Dr Vish is Private Physician. sg 09:51 Yessy Galloway, BE is Primary Nurse. ca1 10:00 Patient has correct armband on for positive identification. Placed in gown. Bed in low ca1 position. Call light in reach. Side rails up X 1. monitor technician on. Pulse ox on. NIBP on. Warm blanket given. 10:02 No provider procedures requiring assistance completed. Initial lab(s) drawn, by me, ca1 sent to lab. Inserted saline lock: 22 gauge in right antecubital area, using aseptic technique. Blood collected. 10:07 Radiology exam delayed due to lab results not completed at this time. (BUN/Creatinine). mw3 10:15 EKG done, by ED staff, reviewed by Juan Pablo Soler NP. jb1 10:20 Notified Nurse Practitioner and/or Physician Inspector [employer] of a critical lab result(s), Hgb sg and Hematocrit abnormal values. 10:23 XRAY Chest (1 view) In Process Unspecified. EDMS 10:23 Shoulder Right (2 View) XRAY In Process Unspecified. EDMS 10:23 Knee Left 3 View XRAY In Process Unspecified. EDMS 10:32 Radiology exam delayed due to lab results not completed at this time. (BUN/Creatinine). mw3 10:47 Consent for blood and/or blood product transfusion explained by physician, signed by ca1 patient. 10:48 Initial lab(s) drawn, by me, sent to lab. Inserted saline lock: 20 gauge in left ca1 antecubital area, using aseptic technique. Blood collected. 10:55 CT completed. Patient tolerated procedure well. Patient moved back from CT. bq 10:58 Chest Abd Pelvis Wo Con In Process Unspecified. EDMS 14:04 IV discontinued, intact, bleeding controlled, No redness/swelling at site. Pressure bp dressing applied. Administered Medications: 10:04 Drug: NS 0.9% 500 ml Route: IV; Rate: bolus; Site: right antecubital; ca1 14:05 Follow up: IV Status: Completed infusion; IV Intake: 500ml bp 11:14 Drug: Magnesium Sulfate 2 grams Route: IVPB; Infused Over: 2 hrs; Site: right ca1 antecubital; 14:05 Follow up: IV Status: Completed infusion; IV Intake: 100ml bp Intake: 14:05 IV: 100ml; Total: 100ml. bp 14:05 IV: 500ml; Total: 600ml. bp Outcome: 14:05 AMA AMA form signed bp 14:05 Condition: stable 14:06 Patient left the ED. bp Signatures: Dispatcher [employer] EDMS Santy Solares jb1 Arthur Brandt, BE RN sg Mejia, Ivis mr Silva, Jennifer bq Juan Pablo Soler, FEED BLENDER FEED BLENDER pm1 Antonio Coley RN RN Addie Hanna mw3 Yessy Galloway RN RN ca1 Corrections: (The following items were deleted from the chart) 12:02 11:59 Pulse 88bpm; Resp 16bpm; Spontaneous; Pulse Ox 100% RA; ca1 ca1
--- NOTE | 2019-01-16 13:55 | EDPHYS ---
Physician Documentation [facility] Name: Landon Peguero Age: 49 yrs Sex: Male : 1970 Arrival Date: 01/16/2019 Time: 09:18 Bed 8 Private MD: Dr LENY Wahl Physician Kash Baca HPI: 01/16 09:55 This 49 yrs old Male presents to ER via Wheelchair with complaints of pm1 Abdominal Pain, Back Pain. 09:55 The patient presents with abdominal pain that is diffuse. Onset: The symptoms/episode pm1 began/occurred yesterday. The symptoms do not radiate. Associated signs and symptoms: Pertinent negatives: nausea, vomiting, and diarrhea, chest pain, dysuria, fever, shortness of breath. The symptoms are described as crampy. Modifying factors: The symptoms are alleviated by nothing, the symptoms are aggravated by nothing. Severity of pain: in the emergency department the pain has improved. Patient with onset of generalized weakness yesterday morning. Feels like he is dehydrated after taking his diuretics. Yesterday afternoon started to have some abdominal cramping while sitting down and got up to walk it off. While walking it off he passed out and landed on his left back side on the floor. Head landed on his dog's mattress. Patient was able to get up and walk. Presenting to ER with pain to posterior aspect of left and right shoulders and left knee pain. No headache or neck pain present. Patient not currently having any abdominal pain or cramping. Patient with history of GI bleed, denies any dark or bloody stools and vomiting. Historical: - Allergies: 09:30 No Known Allergies; sg - PMHx: 09:30 Esophageal tear; GERD; ruptured spleen; sg - PSHx: 09:30 Vasectomy; Esophagus repair; sg - Immunization history:: Adult Immunizations up to date. - Social history:: Smoking status: Patient/guardian denies using tobacco. - Ebola Screening: : Patient negative for fever greater than or equal to 101.5 degrees Fahrenheit, and additional compatible Ebola Virus Disease symptoms Patient denies exposure to infectious person Patient denies travel to an Ebola-affected area in the 21 days before illness onset No symptoms or risks identified at this time. ROS: 09:57 Constitutional: Negative for fever, chills, and weight loss, Eyes: Negative for injury, pm1 pain, redness, and discharge, ENT: Negative for injury, pain, and discharge, Neck: Negative for injury, pain, and swelling, Cardiovascular: Negative for chest pain, palpitations, and edema, Respiratory: Negative for shortness of breath, cough, wheezing, and pleuritic chest pain. 09:57 : Negative for injury, bleeding, discharge, and swelling, MS/Extremity: Negative for injury and deformity, Skin: Negative for injury, rash, and discoloration. 09:57 Abdomen/GI: Positive for abdominal pain, Negative for nausea, vomiting, and diarrhea, constipation, hematemesis, black/tarry stool, rectal bleeding. 09:57 Back: Positive for of the left scapular area and right scapular area, pain. Exam: 09:57 Constitutional: This is a well developed, well nourished patient who is awake, alert, pm1 and in no acute distress. Head/Face: Normocephalic, atraumatic. 09:57 ENT: Nares patent. No nasal discharge, no septal abnormalities noted. Tympanic membranes are normal and external auditory canals are clear. Oropharynx with no redness, swelling, or masses, exudates, or evidence of obstruction, uvula midline. Mucous membranes moist. Neck: Trachea midline, no thyromegaly or masses palpated, and no cervical lymphadenopathy. Supple, full range of motion without nuchal rigidity, or vertebral point tenderness. No Meningismus. Chest/axilla: Normal chest wall appearance and motion. Nontender with no deformity. No lesions are appreciated. Cardiovascular: Regular rate and rhythm with a normal S1 and S2. No gallops, murmurs, or rubs. Normal PMI, no JVD. No pulse deficits. Respiratory: Lungs have equal breath sounds bilaterally, clear to auscultation and percussion. No rales, rhonchi or wheezes noted. No increased work of breathing, no retractions or nasal flaring. 09:57 MS/ Extremity: Pulses equal, no cyanosis. Neurovascular intact. Full, normal range of motion. 09:57 Eyes: Periorbital structures: appear normal, Pupils: no acute changes, Extraocular movements: intact throughout, Conjunctiva: pale, bilaterally, Sclera: icterus, is present, mild, Lids and lashes: appear normal. 09:57 Abdomen/GI: Inspection: distension, that is mild, Bowel sounds: normal, Palpation: abdomen is soft and non-tender, in all quadrants, mass, is not appreciated, rebound tenderness, is not appreciated. 09:57 Back: pain, that is mild, of the left scapular area and right scapular area, normal spinal alignment noted, vertebral tenderness, is not appreciated. 09:57 Skin: Appearance: normal except for affected area, Color: pale. 09:57 Neuro: Orientation: is normal, Mentation: is normal, Motor: is normal, moves all fours. Vital Signs: 09:33 BP 98 / 54; Pulse 90; Resp 16 S; Temp 97.6; Pulse Ox 96% on R/A; sg 10:11 BP 106 / 56; Pulse 82; Resp 23 S; Pulse Ox 99% on R/A; ca1 10:48 BP 108 / 60; Pulse 82; Resp 18 S; Pulse Ox 100% on R/A; ca1 11:59 BP 101 / 51; Pulse 88; Resp 16 S; Pulse Ox 100% on R/A; ca1 12:55 BP 117 / 64; Pulse 97; Resp 23 S; Pulse Ox 100% on R/A; ca1 13:38 BP 121 / 59; Pulse 97; Resp 22; Pulse Ox 100% ; bp MDM: 09:46 Patient medically screened. pm1 11:26 ED course: Pending admission or transfer decision from hospitalist/general surgeon for pm1 determination of blood transfusion due to rare antibiotics. Blood would need to be transferred to location here from [place]. 11:34 Physician consultation: Srinivas Bueno MD was called at 11:34, was contacted at 11:34, pm1 regarding consult, patient's condition, and will see patient in ED, shortly. 12:15 Physician consultation: Srinivas Bueno MD in the emergency department to see patient at pm1 12:15. 12:21 Physician consultation: Ann Mc MD regarding admission, patient's condition, and pm1 will see patient in ED. 12:32 Data reviewed: vital signs. Data interpreted: Pulse oximetry: on room air is 100 %. pm1 Interpretation: normal. 12:48 Physician consultation: Ralph Rodriguez MD was contacted at 12:48, regarding consult, pm1 patient's condition, and will see patient. 13:24 Physician consultation: Ann Mc MD after a discussion of the case, a pm1 recommendation for transfer for higher level of care is made, in the emergency department to see patient at 13:24. 13:52 Refusal of service: The patient/guardian displays adequate decision making capability pm1 and despite a detailed discussion of alternatives, benefits, risks, and consequences refuses: Admission to the hospital for further work-up and treatment, Transfer by EMS to [facility]. Patient refused due to $[phone] bill for EMS with each transfer in the past. Insurance does not cover it. 01/16 09:51 Order name: NT PRO-BNP; Complete Time: 10:44 pm1 01/16 09:51 Order name: Basic Metabolic Panel; Complete Time: 10:44 pm1 01/16 09:51 Order name: CBC with Diff; Complete Time: 10:45 pm1 01/16 09:51 Order name: LFT's; Complete Time: 10:44 pm1 01/16 09:51 Order name: Magnesium; Complete Time: 10:44 pm1 01/16 09:51 Order name: PT-INR; Complete Time: 10:27 pm1 01/16 09:51 Order name: Troponin (emerg Dept Use Only); Complete Time: 10:44 pm1 01/16 09:51 Order name: XRAY Chest (1 view); Complete Time: 11:15 pm1 01/16 09:51 Order name: Shoulder Right (2 View) XRAY; Complete Time: 11:15 pm1 01/16 10:21 Order name: Type And Screen; Complete Time: 17:10 pm1 01/16 10:28 Order name: Bb Add On eb 01/16 10:43 Order name: Manual Differential; Complete Time: 10:45 EDMS 01/16 09:51 Order name: EKG; Complete Time: 09:51 pm1 01/16 09:51 Order name: Cardiac monitoring; Complete Time: 10:00 pm1 01/16 09:51 Order name: EKG - Nurse/Tech; Complete Time: 10:08 pm1 01/16 09:51 Order name: IV Saline Lock; Complete Time: 10:08 pm1 01/16 09:51 Order name: Labs collected and sent; Complete Time: 10:08 pm1 01/16 09:51 Order name: O2 Per Protocol; Complete Time: 10:00 pm1 12 09:51 Order name: O2 Sat Monitoring; Complete Time: 10:00 pm1 12 09:51 Order name: Knee Left 3 View XRAY; Complete Time: 11:15 pm1 12 10:46 Order name: Chest Abd Pelvis Wo Con; Complete Time: 11:20 EDMS Administered Medications: 10:04 Drug: NS 0.9% 500 ml Route: IV; Rate: bolus; Site: right antecubital; ca1 14:05 Follow up: IV Status: Completed infusion; IV Intake: 500ml bp 11:14 Drug: Magnesium Sulfate 2 grams Route: IVPB; Infused Over: 2 hrs; Site: right ca1 antecubital; 14:05 Follow up: IV Status: Completed infusion; IV Intake: 100ml bp Disposition: 01/17 08:33 Co-signature as Attending Physician, Kash Baca MD I agree with the assessment and kdr plan of care. Disposition: 01/16/19 13:54 Patient has left against medical advice. Impression: Anemia, unspecified, Ascites, Hemoperitoneum, Fall on same level, unspecified, Syncope and collapse. - Patients states they are going to Home. - Condition is Stable. - Discharge Instructions: Anemia, Nonspecific, Syncope. Follow up: Emergency Department; When: Upon discharge from the Emergency Department; Reason: Recheck today's complaints, Continuance of care, Re-evaluation by your physician. - Problem is new. - Symptoms are unchanged. Signatures: Dispatcher [employer] [facility] Arthur Brandt RN RN Kash Baca MD MD [facility] Juan Pablo Soler, FRAME HAND FRAME HAND pm1 Antonio Coley RN RN bp AcYessy temple RN RN ca1 Corrections: (The following items were deleted from the chart) 01/16 10:46 09:51 Chest Abdomen Pelvis W Con+CT.RAD.BRZ ordered. [facility]VA 13:54 10:51 Packed RBC Leukored ordered. [facility] 14:06 13:54 01/16/2019 13:54 Patients has left against medical advice. Impression: Anemia, bp unspecified; Ascites; Hemoperitoneum; Fall on same level, unspecified; Syncope and collapse. Patient states they are going to Home. Condition is Stable. Follow up: Emergency Department; When: Upon discharge from the Emergency Department; Reason: Recheck today's complaints, Continuance of care, Re-evaluation by your physician. Problem is new. Symptoms are unchanged. pm1 17:17 11:26 ED course: Pending admission or transfer decision from hospitalist for pm1 determination of blood transfusion due to rare antibiotics. Blood would need to be transferred to location here from [place]. pm1
[2019-01-16 14:13] VITALS: TEMP 97.6
[2019-01-16 14:16] VITALS: O2SAT 100
[2019-01-16 14:19] VITALS: BP 121/59
--- NOTE | 2019-01-16 18:55 | CON ---
Date of Consultation: 01/16/2019 Brief History Of Present Illness: Patient is a 49-year-old male with a known history of cirrhosis from uncertain source, he believes it to be DUVAL, nonalcoholic steatohepatitis related cirrhosis/fatty liver. However, he has been treated at [facility] (formerly [facility]) for this problem. He has had esophageal variceal bleeding before in the past and is chronically anemic. He was due to see a critical systems technician, but has not done so due to, he states, logistical issues with the nephrology office rescheduling him frequently and inability to go and see the critical systems technician in a timely fashion. As such, he has been transfused many times for anemia. He states he was at home and he arose from a chair and felt lightheaded. His was present and witnessed the entire event. After rising from the chair, he took a few steps forward, leaned over and slowly fell onto his left side laterally and landed on his left back area. He did not strike his head. His head fell down onto a dog bed, which had a large pillow. He was slightly amnestic to the event, but the states that he was looking glassy-eyed and disoriented prior to his falling over. He woke up. He did not physically pass out. She continued to communicate with her, but appeared confused after the event, but shortly thereafter became lucid. This occurred at approximately 7-8 o'clock last evening. He therefore was brought to the hospital today with the lightheadedness, dizziness, and concern for anemia which he has had in the past. Past Medical History: Significant for GI bleeds, chronic liver disease, splenic rupture treated nonoperatively at [facility], esophageal variceal bleeding with banding, GERD. Past Surgical History: A vasectomy, esophageal banding. He states he has had no intraabdominal surgery. Allergies: NO KNOWN DRUG ALLERGIES. Medications: Iron, spironolactone, Lasix, Protonix. Family History: Denies any history of liver disease. Social History: He denies smoking since 2013. No drinking in his 20s. Denies any recreational drug use. Review of Systems: 10-point review of systems other than HPI, currently denies. Physical Examination: General: At the time of my examination, he is awake, alert, and oriented. Vital Signs: His heart rate was 90. His blood pressure was normal. His vital signs were within the normal range during my evaluation. He was conversive, awake, alert, and oriented. Psychiatric: He is appropriate, conversive. HEENT: He is otherwise normocephalic. His sclerae were slightly injected and jaundiced. Neck: Supple. There appeared to be no JVD. Chest: Normal expansion and excursion. Cardiovascular: Regular rate and rhythm. Pulmonary: Decreased breath sounds bilaterally. Abdomen: Fluidic, large, nontender. He has a large fluid-filled umbilical hernia, bilateral inguinal hernias. He has some increased caput medusae over his abdomen, but it is nontender and distended only with fluid, but soft and benign otherwise. Extremities: He has some slight edema to his bilateral lower extremities. Back: No injury evident. There is no bruising on his back. Skin: Otherwise warm and dry, but has some discoloration consistent with jaundice. Laboratory Data: White blood cell count is 12.9, hemoglobin 5.4 over hematocrit of 16.6, platelet count is 187, neutrophils are 70%. His PT is 16.8 , INR 1.38. Sodium 133, potassium 3.8, chloride 99, carbon dioxide 26, BUN 32, creatinine 2.9, glucose 127, calcium 7.7, magnesium 1.4, total bilirubin 3.4, direct component 2.3, AST 53, ALT 19, alkaline phosphatase 144. Troponin less than 0.02. ProBNP is 472. He had imaging performed which included a chest, abdomen, pelvis CT which was officially read as hyperdense material present, collecting in the dependent portion of the pelvis in this patient with moderate amount of ascites. Hyperdense material suspected to be blood collecting in the dependent portion of the pelvis. Source of the blood and estimated 100 mL is not evident on exam. Active bleeding cannot be assessed, cirrhosis or diffuse hepatic parenchymal disease. No pneumothorax or acute chest findings. Trace pleural fluid noted on the right. No gross evidence for injury to this solid abdominal viscera. Overall, exam is limited by the absence of IV contrast. Additionally, he had a chest x-ray on the left, which showed shallow inspiratory film without acute cardiopulmonary finding. The knee x-ray was officially read as negative left knee. He had a shoulder x-ray as well which was officially read as negative 2-view shoulder examination for acute findings. Assessment And Plan: This is a 49-year-old male who comes in with significant edema, a MELD score of 25, and a history of cirrhosis with esophageal variceal bleeding. 1. There is no evidence of gastrointestinal or solid abdominal visceral bleeding at this time. 2. Patient is chronically anemic and as such, I am uncertain of the acute nature of this gastrointestinal bleed. 3. I recommend transfusion of this patient with blood and blood products. 4. Serial abdominal exams. 5. I recommend GI consultation for ancillary followup. 6. Patient has expressed interest in being transferred to [facility] where he is chronically managed for his cirrhosis and medical issues and as such I feel this would be an appropriate transfer, but I do not find the patient has an acute surgical need at this time. However, I will follow along with you should he require this. 7. 8. Thank you for this interesting consult. SEB Voice ID: [id number] Report ID: [id number] MTDKristal
--- NOTE | 2019-01-17 07:40 | EKG ---
Test Date: 2019-01-16 Test Time: 10:04:59 Auto Tune Up Mechanic: SKYLAR MEASUREMENT RESULTS: Intervals: Rate: 81 UT: 142 QRSD: 92 QT: 416 QTc: 483 [place]: P: 34 UT: 142 QRS: 1 T: 30 INTERPRETIVE STATEMENTS: Sinus rhythm with frequent premature ventricular complexes Prolonged QT Abnormal ECG Compared to ECG 08/19/2017 15:15:04 Ventricular premature complex(es) now present Prolonged QT interval now present Sinus tachycardia no longer present Electronically Signed On 01-17-19 07:39:30 FISH PROTECTOR by Sagar Amador
== END 2019-01-16 14:06 | disposition left against medical advice (07) ==
LOC: ER 09:15
DX: D64.9 Anemia, unspecified (principal); K66.1 Hemoperitoneum; K74.60 Unspecified cirrhosis of liver; R18.8 Other ascites; W19.XXXA Unspecified fall, initial encounter; Y93.89 Activity, other specified; Y92.9 Unspecified place or not applicable
CPT/HCPCS: 96365; 96361; 93005; 85025; 80048; 36415; 86900; 83735; 86850; 85610; 86901; 80076; 84484; 83880; 71250; 74176; 71045; 73030; 73562; 99285; 96366; J1200; J3475; J7030; J7040; J1720